=== PATIENT | male | born 1985 | race Two or more races ===

== ENCOUNTER 2021-05-27 18:51 | Inpatient (IN) | payer MEDICAID, OTHER ==
[~2021-05-27] VITALS: Ht 177.8 cm; Wt 113.0 kg
[2021-05-27 19:26] LABS: Hemoglobin 13.1 g/dL (13.5-17.5); Mean Corpuscular Hgb Conc. 30.4 g/dL (32.0-36.0); Mean Corpuscular Volume 92.1 fL (80.0-100.0); Red Blood Cells 4.67 10^6/uL (4.5-5.90)
[2021-05-27] MEDS ORDERED: InsuLIN REG 1unit/0.01ml Soln (100units/ml) IV ONE (19:30)
[2021-05-27 19:34] LABS: White Blood Cell 38.9 10^3/uL (4.4-10.8)
[2021-05-27 19:35] LABS: Basophils % (manual) 0 (0.0-2.0); Blast Cells 0; Eosinophils % (manual) 0 (0-7); Myelocytes % 0; Promyelocytes % 0; Reactive Lymphocytes 0
[2021-05-27 19:38] LABS: INR 1.1 (0.9-1.15)
[2021-05-27 19:40] LABS: Albumin 1.7 g/dL (3.4-5.0); Anion Gap 30 (5-15); Blood Urea Nitrogen 32 mg/dL (7-18); Calcium 8.8 mg/dL (8.5-10.1); Chloride 85 mmol/L (98-107); Magnesium 3.5 mg/dL (1.6-2.6); Sodium 121 mmol/L (136-145)
[2021-05-27 19:48] LABS: Carbon Dioxide 6 mmol/L (21-32); Potassium 6.3 mmol/L (3.5-5.1)
[2021-05-27 19:49] LABS: Alanine Aminotransferase 24 U/L (16-61); Alkaline Phosphatase 257 U/L (45-117); Aspartate Aminotransferase 15 U/L (15-37); BUN/Creatinine Ratio 18.4; Bilirubin, Total 0.6 mg/dL (0.2-1.0); GFR African American 58 mL/min; GFR Non-African American 48 mL/min; Phosphorus 7.8 mg/dL (2.5-4.90)
[2021-05-27 19:52] LABS: Glucose 880 mg/dL (74-106)
[2021-05-27] MEDS ORDERED: MAGNESIUM SULFATE 1GM/100ML 200 ML IV ONE (20:00)
[2021-05-27] MEDS ORDERED: PIPERACILLIN-TAZOB 3.375GM 100 ML IV ONE (20:00)
[2021-05-27] MEDS: InsuLIN R (HUMAN) 100 UNITS in SODIUM CHL 0.9% 99 ML IV SCH ×2 (20:00→22:30)
[2021-05-27] MEDS ORDERED: SODIUM CHLORIDE 0.9% 1,000 ML IV ONE (20:00)
[2021-05-27] MEDS ORDERED: VANCOMYCIN 1GM/250ML 250 ML IV ONE (20:00)
[2021-05-27] MEDS ORDERED: DEXTROSE (50%) 50ML SYRG IV PRN (20:00)
[2021-05-27] MEDS: SODIUM CHLORIDE 0.9% 1,000 ML IV SCH ×2 (20:00→22:00)
[2021-05-27] MEDS ORDERED: INSULIN LANTUS (GLARGINE) 1 /0.01ml (100units/ml) SC ONE (20:00)
[2021-05-27] MEDS: PROPOFOL 100 ML IV SCH (20:30)
[2021-05-27] MEDS ORDERED: ETOMIDATE (2MG/ML) 20ML VIAL IV ONE (20:30)
[2021-05-27] MEDS ORDERED: ROCURONIUM 10MG/ML 10ML VIAL IV ONE (20:30)
[2021-05-27] MEDS ORDERED: PROPOFOL 100 ML IV ONE (20:33)
[2021-05-27] MEDS ORDERED: NOREPINEPHRINE 8 MG/250ML KIT 250 ML IV SCH (20:45)
[2021-05-27] MEDS ORDERED: ONDANSETRON HCL 4 MG/2 ML VIAL IV PRN (21:00)
[2021-05-27] MEDS ORDERED: LORazepam 0.5 MG TAB PO PRN (21:00)
[2021-05-27] MEDS: ACCU-CHEK COMFORT CURVE STRIP VI SCH ×2 (21:00→22:30)
[2021-05-27] MEDS ORDERED: ALUM & MAG HYDROX-SIMETH LIQ(MAALOX) 30 ML PO PRN (21:00)
[2021-05-27] MEDS ORDERED: VANCOMYCIN PER PHARMACY 0 MG IV SCH (21:00)
[2021-05-27] MEDS ORDERED: SODIUM CHLORIDE 0.9% 1,000 ML IV SCH (21:00)
[2021-05-27] MEDS ORDERED: DOCUSATE SOD 100 MG CAP PO PRN (21:00)
[2021-05-27 21:02] LABS: Band Neutrophils % (manual) 7; Lymphocytes % (manual) 4 (10.0-50.0); Metamyelocytes % 1; Monocytes % (manual) 3 (0-12)
[2021-05-27 21:59] VITALS: BP 92/47
[2021-05-27] MEDS ORDERED: SODIUM BICARBONATE 8.4% INJ 50ML SYRINGE IV ONE (22:15)
[2021-05-27] MEDS ORDERED: SODIUM BICARBONATE 50ML VIAL 50 ML in SOD CHL 0.45% 1,000 ML IV SCH (22:15)
[2021-05-27 22:23] LABS: Urine Bacteria NONE SEEN /hpf (None Seen); Urine Blood 1+ /uL (Negative); Urine Specific Gravity 1.024 (1.001-1.035); Urine WBC 2 /hpf (0 - 3)
[2021-05-27 22:33] LABS: Alcohol, Urine < 3.0 mg/dL (0-10); Amphetamine Screen, Urine NEGATIVE (NEGATIVE); Barbiturate Scree,Urine NEGATIVE (NEGATIVE); Benzodiazephine Screen, Urine NEGATIVE (NEGATIVE); Cannabinoid Screen, Urine NEGATIVE (NEGATIVE); Cocaine Screen, Urine NEGATIVE (NEGATIVE); Opiate Scree,Urine NEGATIVE (NEGATIVE); Phencyclidine Screen, Urine NEGATIVE (NEGATIVE)
[2021-05-27 22:39] VITALS: BP 92/47
[2021-05-27] MEDS ORDERED: SODIUM BICARBONATE 8.4% INJ 50ML SYRINGE ONE (22:52)
[2021-05-28] VITALS (75 sets, daily range): BP systolic 85–113; BP diastolic 38–71
[2021-05-28] MEDS: InsuLIN R (HUMAN) 100 UNITS in SODIUM CHL 0.9% 99 ML IV SCH ×7 (00:13→12:25)
[2021-05-28] MEDS: ACCU-CHEK COMFORT CURVE STRIP VI SCH ×16 (01:30→22:50)
[2021-05-28] MEDS ORDERED: InsuLIN R (HUMAN) 100 UNITS in SODIUM CHL 0.9% 99 ML IV SCH ×5 (01:45→05:00)
[2021-05-28] MEDS: PIPERACILLIN-TAZOB 3.375GM 100 ML IV SCH ×3 (02:00→15:08)
[2021-05-28] MEDS ORDERED: SODIUM CHLORIDE 0.9% 1,000 ML IV SCH ×2 (02:00)
[2021-05-28 02:08] LABS: Calcium 7.9 mg/dL (8.5-10.1); Potassium 4.1 mmol/L (3.5-5.1)
[2021-05-28 02:37] LABS: BUN/Creatinine Ratio 18.6
[2021-05-28 05:26] LABS: Hematocrit 34.8 % (41.0-53.0); Hemoglobin 11.4 g/dL (13.5-17.5); Mean Corpuscular Volume 85.3 fL (80.0-100.0); Red Blood Cells 4.08 10^6/uL (4.5-5.90); Red Cell Distribution Width 13.2 % (11.8-14.3)
[2021-05-28 05:30] LABS: Mean Corpuscular Hemoglobin 27.9 pg (28.0-32.0); Mean Corpuscular Hgb Conc. 32.7 g/dL (32.0-36.0)
[2021-05-28] MEDS ORDERED: MIDAZOLAM DRIP 50 mg/50mL 50 ML IV ONE (05:40)
[2021-05-28 05:41] LABS: White Blood Cell 31.5 10^3/uL (4.4-10.8)
[2021-05-28 05:42] LABS: Basophils % (manual) 0 (0.0-2.0); Blast Cells 0; Eosinophils % (manual) 0 (0-7); Metamyelocytes % 0; Promyelocytes % 0; Reactive Lymphocytes 0
[2021-05-28] MEDS: MIDAZOLAM DRIP 50 mg/50mL 50 ML IV SCH ×4 (05:45→20:49)
[2021-05-28 05:54] LABS: BUN/Creatinine Ratio 18.3; Calcium 7.9 mg/dL (8.5-10.1); Magnesium 3.2 mg/dL (1.6-2.6); Phosphorus 4.2 mg/dL (2.5-4.90)
[2021-05-28] MEDS: PROPOFOL 100 ML IV SCH ×4 (06:45→23:27)
[2021-05-28 06:53] LABS: Band Neutrophils % (manual) 32; Lymphocytes % (manual) 2 (10.0-50.0); Monocytes % (manual) 6 (0-12); Myelocytes % 4
[2021-05-28] MEDS ORDERED: VANCOMYCIN 1GM/250ML 250 ML IV SCH ×2 (10:00→22:00)
[2021-05-28] MEDS ORDERED: INSULIN LANTUS (GLARGINE) 1 /0.01ml (100units/ml) SC SCH (10:00)
[2021-05-28] MEDS: SODIUM CHLORIDE 0.9% 1,000 ML IV SCH ×2 (13:33→20:50)
[2021-05-28 14:11] LABS: Potassium 3.2 mmol/L (3.5-5.1)
[2021-05-28 14:15] LABS: BUN/Creatinine Ratio 14.3
[2021-05-28] MEDS: NOREPINEPHRINE 8 MG/250ML KIT 250 ML IV SCH ×2 (17:20→20:45)
[2021-05-28] MEDS: POTASSIUM CHL 20MEQ/100ML 100 ML IV SCH ×2 (17:30→19:16)
[2021-05-28] MEDS: fentaNYL Drip 2500mCg/250mlNS 250 ML IV SCH (18:13)
[2021-05-28] MEDS ORDERED: ALBUAER3 IN (19:40)
[2021-05-28] MEDS: MEROPENEM 1GM IVPB 100 ML IV SCH (20:48)
[2021-05-28] MEDS: SOD CHL 0.9%/ KCL 20MEQ 1,000 ML IV SCH (23:33)
[2021-05-28] MEDS: ATORVASTATIN 20 MG TAB PO SCH (23:34)
[2021-05-28] MEDS: LINEZOLID 600MG/300ML 300 ML IV SCH (23:53)
[2021-05-29] VITALS (104 sets, daily range): BP systolic 99–124; BP diastolic 46–63
[2021-05-29] MEDS: ACCU-CHEK COMFORT CURVE STRIP VI SCH ×7 (00:13→20:06)
[2021-05-29 00:49] LABS: BUN/Creatinine Ratio 13.3; Calcium 7.6 mg/dL (8.5-10.1); Magnesium 2.8 mg/dL (1.6-2.6); Potassium 3.9 mmol/L (3.5-5.1)
[2021-05-29 00:53] LABS: Bilirubin, Total 0.2 mg/dL (0.2-1.0); Total Protein 6.8 g/dL (6.4-8.2)
[2021-05-29] MEDS: MIDAZOLAM DRIP 50 mg/50mL 50 ML IV SCH ×5 (01:19→18:18)
[2021-05-29 01:50] LABS: Albumin 0.7 g/dL (3.4-5.0)
[2021-05-29] MEDS: PROPOFOL 100 ML IV SCH ×7 (02:50→21:34)
[2021-05-29] MEDS ORDERED: ALBUMIN 25% 100 ML IV ONE (03:15)
[2021-05-29] MEDS ORDERED: DEXTROSE (50%) 50ML SYRG IV PRN (03:15)
[2021-05-29] MEDS: InsuLIN REG 1unit/0.01ml Soln (100units/ml) SC SCH ×5 (04:30→20:25)
[2021-05-29 05:27] LABS: Mean Corpuscular Hemoglobin 27.7 pg (28.0-32.0); Mean Corpuscular Volume 82.9 fL (80.0-100.0)
[2021-05-29 05:31] LABS: Hemoglobin 10.7 g/dL (13.5-17.5); Mean Corpuscular Hgb Conc. 33.4 g/dL (32.0-36.0); Red Blood Cells 3.86 10^6/uL (4.5-5.90); Red Cell Distribution Width 13.3 % (11.8-14.3)
[2021-05-29 05:40] LABS: Basophils % (manual) 0 (0.0-2.0); Blast Cells 0; Eosinophils % (manual) 0 (0-7); Metamyelocytes % 0; Myelocytes % 0; Promyelocytes % 0; Reactive Lymphocytes 0
[2021-05-29 05:47] LABS: Albumin 1.5 g/dL (3.4-5.0); Blood Urea Nitrogen 53 mg/dL (7-18); Chloride 103 mmol/L (98-107); Magnesium 3.2 mg/dL (1.6-2.6); Potassium 4.1 mmol/L (3.5-5.1); Sodium 132 mmol/L (136-145)
[2021-05-29 05:51] LABS: INR 0.97 (0.9-1.15); Partial Thromboplastin Time 31.1 sec (23.6-33.0)
[2021-05-29 05:53] LABS: Alanine Aminotransferase 13 U/L (16-61); Alkaline Phosphatase 130 U/L (45-117); Anion Gap 11 (5-15); Aspartate Aminotransferase 15 U/L (15-37); BUN/Creatinine Ratio 12.7; Bilirubin, Total 0.3 mg/dL (0.2-1.0); Carbon Dioxide 18 mmol/L (21-32); GFR African American 21 mL/min; GFR Non-African American 17 mL/min; Glucose 286 mg/dL (74-106); Phosphorus 3.2 mg/dL (2.5-4.90); Total Protein 7.1 g/dL (6.4-8.2); Uric Acid 11.9 mg/dL (3.5-7.2)
[2021-05-29 06:46] LABS: Band Neutrophils % (manual) 33; Lymphocytes % (manual) 6 (10.0-50.0); Monocytes % (manual) 7 (0-12)
[2021-05-29] MEDS: SOD CHL 0.9%/ KCL 20MEQ 1,000 ML IV SCH ×2 (06:54→14:53)
[2021-05-29] MEDS ORDERED: SODIUM BICARBONATE 8.4 % INJ 50ML VIAL IV ONE (07:30)
[2021-05-29] MEDS: MEROPENEM 1GM IVPB 100 ML IV SCH ×2 (07:50→20:05)
[2021-05-29] MEDS: fentaNYL Drip 2500mCg/250mlNS 250 ML IV SCH ×2 (07:55→21:45)
[2021-05-29] MEDS: LINEZOLID 600MG/300ML 300 ML IV SCH (11:22)
[2021-05-29] MEDS: ENOXAPARIN SOD 30 MG/0.3 ML SYRINGE SC SCH (11:23)
[2021-05-29] MEDS: ASPirin 81 mg TAB PO SCH (11:23)
[2021-05-29] MEDS: INSULIN LANTUS (GLARGINE) 1 /0.01ml (100units/ml) SC SCH (11:50)
[2021-05-29] MEDS ORDERED: BUMETANIDE 2.5mg/10ml (0.25 mg/ml) INJ IV ONE (20:00)
[2021-05-29] MEDS: NOREPINEPHRINE 8 MG/250ML KIT 250 ML IV SCH (20:45)
[2021-05-29] MEDS: ATORVASTATIN 20 MG TAB PO SCH (21:34)
[2021-05-30] VITALS (101 sets, daily range): BP systolic 76–145; BP diastolic 31–73
[2021-05-30] MEDS: SOD CHL 0.9%/ KCL 20MEQ 1,000 ML IV SCH ×2 (00:12→06:50)
[2021-05-30] MEDS: PROPOFOL 100 ML IV SCH ×6 (00:13→23:37)
[2021-05-30] MEDS: ACCU-CHEK COMFORT CURVE STRIP VI SCH ×6 (00:13→21:55)
[2021-05-30] MEDS: MIDAZOLAM DRIP 50 mg/50mL 50 ML IV SCH ×4 (00:13→23:37)
[2021-05-30] MEDS: LINEZOLID 600MG/300ML 300 ML IV SCH ×3 (00:15→23:36)
[2021-05-30] MEDS: InsuLIN REG 1unit/0.01ml Soln (100units/ml) SC SCH ×6 (00:26→21:57)
[2021-05-30 04:59] LABS: Basophils # (auto) 0.2 10 ^3/uL (0-0.2); Eosinophils # (auto) 0.4 10 ^3/uL (0-0.8); Eosinophils % (auto) 2.5 % (0.0-7.0); Hematocrit 31.4 % (41.0-53.0); Hemoglobin 10.5 g/dL (13.5-17.5); Lymphocytes # (auto) 1.5 10 ^3/uL (0.4-5.4); Lymphocytes % (auto) 8.7 % (10.0-50.0); Mean Corpuscular Hemoglobin 28.1 pg (28.0-32.0); Mean Corpuscular Hgb Conc. 33.5 g/dL (32.0-36.0); Mean Corpuscular Volume 83.7 fL (80.0-100.0); Monocytes # (auto) 0.8 10 ^3/uL (0-1.3); Monocytes % (auto) 4.4 % (0.0-12.0); Neutrophils # (auto) 14.6 10 ^3/uL (1.6-8.6); Neutrophils % (auto) 83.4 % (37.0-80.0); Red Blood Cells 3.75 10^6/uL (4.5-5.90); Red Cell Distribution Width 13.6 % (11.8-14.3); White Blood Cell 17.5 10^3/uL (4.4-10.8)
[2021-05-30 05:20] LABS: BUN/Creatinine Ratio 11.2; Calcium 7.5 mg/dL (8.5-10.1)
[2021-05-30 07:35] LABS: Phosphorus 5.3 mg/dL (2.5-4.90)
[2021-05-30] MEDS: MEROPENEM 1GM IVPB 100 ML IV SCH (08:19)
[2021-05-30] MEDS ORDERED: SODIUM BICARBONATE 8.4 % INJ 50ML VIAL IV ONE ×2 (09:00→13:30)
[2021-05-30] MEDS ORDERED: ceFAZolin 1GM VL ONE (09:01)
[2021-05-30] MEDS ORDERED: ceFAZolin 1GM/50ML 50 ML IV ONE (09:08)
[2021-05-30] MEDS: fentaNYL Drip 2500mCg/250mlNS 250 ML IV SCH ×2 (09:18→22:00)
[2021-05-30] MEDS: ASPirin 81 mg TAB PO SCH (10:00)
[2021-05-30] MEDS: ENOXAPARIN SOD 30 MG/0.3 ML SYRINGE SC SCH (10:30)
[2021-05-30] MEDS: NOREPINEPHRINE 8 MG/250ML KIT 250 ML IV SCH (10:38)
[2021-05-30] MEDS ORDERED: HYDROmorphone HCL 2 MG/ML VL IV PRN (10:45)
[2021-05-30] MEDS ORDERED: LABETALOL HCL 5 MG/ML 4ML SYRINGE IV PRN (10:45)
[2021-05-30] MEDS: INSULIN LANTUS (GLARGINE) 1 /0.01ml (100units/ml) SC SCH (12:21)
[2021-05-30 12:54] LABS: Albumin 1.1 g/dL (3.4-5.0); Calcium 7.4 mg/dL (8.5-10.1)
[2021-05-30 12:59] LABS: BUN/Creatinine Ratio 10.4; Bilirubin, Total 0.5 mg/dL (0.2-1.0); Total Protein 6.6 g/dL (6.4-8.2)
[2021-05-30 13:03] LABS: Potassium 5.7 mmol/L (3.5-5.1)
[2021-05-30] MEDS ORDERED: ALBUTEROL SULF 2.5 MG/0.5ML(0.5%) NEB SOLN NEB ONE ×3 (13:15→20:45)
[2021-05-30] MEDS ORDERED: FUROSEMIDE 20 MG/2 ML VIAL IV ONE (13:15)
[2021-05-30] MEDS ORDERED: DEXTROSE (50%) 50ML SYRG IV ONE ×2 (13:30→20:45)
[2021-05-30] MEDS ORDERED: InsuLIN REG 1unit/0.01ml Soln (100units/ml) IV ONE ×2 (13:30→20:45)
[2021-05-30] MEDS ORDERED: SODIUM CHLORIDE 0.9% 1,000 ML IV ONE (13:30)
[2021-05-30] MEDS ORDERED: SODIUM ZIRCONIUM CYCL 10 GM PAK PO ONE ×2 (13:30→20:45)
[2021-05-30] MEDS ORDERED: CALCIUM GLUC 1,000mg/50ml-NS 50 ML IV ONE ×2 (13:30→20:45)
[2021-05-30] MEDS ORDERED: SODIUM BICARBONATE 8.4% INJ 50ML SYRINGE ONE (14:36)
[2021-05-30 19:07] LABS: BUN/Creatinine Ratio 10.3; Calcium 7.2 mg/dL (8.5-10.1)
[2021-05-30 19:16] LABS: Potassium 5.9 mmol/L (3.5-5.1)
[2021-05-30] MEDS ORDERED: BUMETANIDE INJECTION 25 MG in GIVE UN-DILUTED 0 ML IV SCH (20:45)
[2021-05-30] MEDS ORDERED: BUMETANIDE 2.5mg/10ml (0.25 mg/ml) INJ IV ONE (20:45)
[2021-05-30] MEDS: ATORVASTATIN 20 MG TAB PO SCH (21:56)
[2021-05-30] MEDS ORDERED: BUMETANIDE ONE (22:36)
[2021-05-30] MEDS ORDERED: BUMETANIDE INJECTION 40 ML ONE (22:40)
[2021-05-31] VITALS (99 sets, daily range): BP systolic 86–123; BP diastolic 36–63
[2021-05-31] MEDS: ACCU-CHEK COMFORT CURVE STRIP VI SCH ×6 (00:18→21:31)
[2021-05-31] MEDS: SODIUM ZIRCONIUM CYCL 10 GM PAK GT SCH ×4 (00:18→19:28)
[2021-05-31] MEDS: InsuLIN REG 1unit/0.01ml Soln (100units/ml) SC SCH ×6 (00:19→21:32)
[2021-05-31 00:52] LABS: BUN/Creatinine Ratio 10.2; Calcium 7.5 mg/dL (8.5-10.1); Potassium 4.9 mmol/L (3.5-5.1)
[2021-05-31] MEDS: PROPOFOL 100 ML IV SCH ×7 (02:00→23:30)
[2021-05-31 05:00] LABS: Basophils # (auto) 0.1 10 ^3/uL (0-0.2); Basophils % (auto) 0.3 % (0.0-2.0); Eosinophils # (auto) 0.2 10 ^3/uL (0-0.8); Eosinophils % (auto) 1.1 % (0.0-7.0); Hematocrit 28.6 % (41.0-53.0); Hemoglobin 9.8 g/dL (13.5-17.5); Lymphocytes # (auto) 1.5 10 ^3/uL (0.4-5.4); Lymphocytes % (auto) 7.2 % (10.0-50.0); Mean Corpuscular Hemoglobin 28.5 pg (28.0-32.0); Mean Corpuscular Hgb Conc. 34.3 g/dL (32.0-36.0); Mean Corpuscular Volume 83.3 fL (80.0-100.0); Monocytes # (auto) 1.5 10 ^3/uL (0-1.3); Neutrophils # (auto) 17.5 10 ^3/uL (1.6-8.6); Neutrophils % (auto) 84.4 % (37.0-80.0); Red Blood Cells 3.43 10^6/uL (4.5-5.90); Red Cell Distribution Width 13.9 % (11.8-14.3); White Blood Cell 20.8 10^3/uL (4.4-10.8)
[2021-05-31] MEDS: NOREPINEPHRINE 8 MG/250ML KIT 250 ML IV SCH (05:02)
[2021-05-31 05:18] LABS: Calcium 7.4 mg/dL (8.5-10.1); Phosphorus 6.9 mg/dL (2.5-4.90); Potassium 4.9 mmol/L (3.5-5.1)
[2021-05-31] MEDS: MIDAZOLAM DRIP 50 mg/50mL 50 ML IV SCH ×2 (06:23→13:15)
[2021-05-31] MEDS: MEROPENEM 1GM IVPB 100 ML IV SCH (10:07)
[2021-05-31] MEDS: ASPirin 81 mg TAB PO SCH (10:18)
[2021-05-31] MEDS: ENOXAPARIN SOD 30 MG/0.3 ML SYRINGE SC SCH (10:18)
[2021-05-31] MEDS: INSULIN LANTUS (GLARGINE) 1 /0.01ml (100units/ml) SC SCH (10:18)
[2021-05-31] MEDS: fentaNYL Drip 2500mCg/250mlNS 250 ML IV SCH (11:38)
[2021-05-31 12:10] LABS: BUN/Creatinine Ratio 9.5; Calcium 7.4 mg/dL (8.5-10.1); Potassium 5.5 mmol/L (3.5-5.1)
[2021-05-31] MEDS: LINEZOLID 600MG/300ML 300 ML IV SCH ×2 (13:42→23:20)
[2021-05-31] MEDS ORDERED: VANCOMYCIN PER PHARMACY 0 MG IV SCH (14:15)
[2021-05-31 18:46] LABS: Calcium 7.6 mg/dL (8.5-10.1)
[2021-05-31 18:48] LABS: BUN/Creatinine Ratio 9.9
[2021-05-31] MEDS ORDERED: InsuLIN REG 1unit/0.01ml Soln (100units/ml) IV ONE ×2 (19:15→23:59)
[2021-05-31] MEDS ORDERED: CALCIUM GLUC 1,000mg/50ml-NS 50 ML IV ONE ×2 (19:15→23:59)
[2021-05-31] MEDS ORDERED: DEXTROSE (50%) 50ML SYRG IV ONE ×2 (19:15→23:59)
[2021-05-31] MEDS: ATORVASTATIN 20 MG TAB PO SCH (23:20)
[2021-06-01] VITALS (94 sets, daily range): BP systolic 92–148; BP diastolic 37–82
[2021-06-01] MEDS ORDERED: CALCIUM GLUC 1,000mg/50ml-NS 50 ML IV ONE
[2021-06-01 00:32] LABS: BUN/Creatinine Ratio 9.9; Calcium 7.5 mg/dL (8.5-10.1); Potassium 5.5 mmol/L (3.5-5.1)
[2021-06-01] MEDS: fentaNYL Drip 2500mCg/250mlNS 250 ML IV SCH ×3 (02:00→23:47)
[2021-06-01] MEDS: InsuLIN REG 1unit/0.01ml Soln (100units/ml) SC SCH ×7 (03:28→23:59)
[2021-06-01] MEDS: ACCU-CHEK COMFORT CURVE STRIP VI SCH ×7 (03:31→23:59)
[2021-06-01] MEDS: PROPOFOL 100 ML IV SCH ×6 (04:00→22:30)
[2021-06-01 05:28] LABS: Basophils # (auto) 0.1 10 ^3/uL (0-0.2); Basophils % (auto) 0.4 % (0.0-2.0); Eosinophils # (auto) 0.5 10 ^3/uL (0-0.8); Eosinophils % (auto) 2.7 % (0.0-7.0); Hematocrit 27.3 % (41.0-53.0); Lymphocytes # (auto) 0.9 10 ^3/uL (0.4-5.4); Lymphocytes % (auto) 4.8 % (10.0-50.0); Mean Corpuscular Hemoglobin 27.7 pg (28.0-32.0); Mean Corpuscular Hgb Conc. 32.8 g/dL (32.0-36.0); Mean Corpuscular Volume 84.3 fL (80.0-100.0); Monocytes # (auto) 1.7 10 ^3/uL (0-1.3); Monocytes % (auto) 9.2 % (0.0-12.0); Neutrophils # (auto) 15.6 10 ^3/uL (1.6-8.6); Neutrophils % (auto) 82.9 % (37.0-80.0); Red Blood Cells 3.24 10^6/uL (4.5-5.90); Red Cell Distribution Width 14.1 % (11.8-14.3); White Blood Cell 18.8 10^3/uL (4.4-10.8)
[2021-06-01 06:00] LABS: Potassium 5.4 mmol/L (3.5-5.1)
[2021-06-01] MEDS: SODIUM ZIRCONIUM CYCL 10 GM PAK GT SCH ×4 (06:08→22:00)
[2021-06-01 06:10] LABS: BUN/Creatinine Ratio 9.8; Bilirubin, Total 0.5 mg/dL (0.2-1.0); Calcium 7.7 mg/dL (8.5-10.1); Total Protein 6.2 g/dL (6.4-8.2)
[2021-06-01 06:38] LABS: Albumin 0.9 g/dL (3.4-5.0)
[2021-06-01] MEDS ORDERED: SODIUM BICARBONATE 8.4 % INJ 50ML VIAL IV ONE (07:15)
[2021-06-01] MEDS ORDERED: SODIUM CHL 0.9% 1000 ML BAG XX ONE (09:15)
[2021-06-01] MEDS: MEROPENEM 1GM IVPB 100 ML IV SCH (09:48)
[2021-06-01] MEDS: ASPirin 81 mg TAB PO SCH (09:48)
[2021-06-01] MEDS: MIDAZOLAM DRIP 50 mg/50mL 50 ML IV SCH ×2 (09:50→18:52)
[2021-06-01] MEDS: INSULIN LANTUS (GLARGINE) 1 /0.01ml (100units/ml) SC SCH (11:39)
[2021-06-01] MEDS: ENOXAPARIN SOD 30 MG/0.3 ML SYRINGE SC SCH (12:01)
[2021-06-01] MEDS: LINEZOLID 600MG/300ML 300 ML IV SCH ×2 (12:01→23:00)
[2021-06-01 12:25] LABS: BUN/Creatinine Ratio 9.8; Calcium 7.8 mg/dL (8.5-10.1)
[2021-06-01 13:09] LABS: Potassium 5.8 mmol/L (3.5-5.1)
[2021-06-01] MEDS ORDERED: ALBUMIN 25% 50 ML IV ONE (14:28)
[2021-06-01] MEDS ORDERED: ALBUMIN 25% 100 ML IV ONE (14:30)
[2021-06-01] MEDS ORDERED: SODIUM ZIRCONIUM CYCL 10 GM PAK GT SCH (18:00)
[2021-06-01 20:01] LABS: BUN/Creatinine Ratio 8.6; Calcium 7.5 mg/dL (8.5-10.1); Potassium 3.9 mmol/L (3.5-5.1)
[2021-06-01] MEDS: NOREPINEPHRINE 8 MG/250ML KIT 250 ML IV SCH (20:45)
[2021-06-01] MEDS ORDERED: EPOETIN ALFA-EPBX 10,000 UNIT/1ML VIAL SC ONE ×2 (21:00)
[2021-06-01] MEDS: ATORVASTATIN 20 MG TAB PO SCH (22:00)
[2021-06-02] VITALS (104 sets, daily range): BP systolic 89–136; BP diastolic 42–69
[2021-06-02] MEDS: PROPOFOL 100 ML IV SCH ×3 (01:39→09:49)
[2021-06-02] MEDS: InsuLIN REG 1unit/0.01ml Soln (100units/ml) SC SCH ×5 (04:00→20:00)
[2021-06-02] MEDS: ACCU-CHEK COMFORT CURVE STRIP VI SCH ×5 (04:29→20:00)
[2021-06-02] MEDS: MIDAZOLAM DRIP 50 mg/50mL 50 ML IV SCH (04:30)
[2021-06-02 04:38] LABS: Hematocrit 25.7 % (41.0-53.0); Hemoglobin 8.8 g/dL (13.5-17.5); Mean Corpuscular Hemoglobin 27.9 pg (28.0-32.0); Mean Corpuscular Hgb Conc. 34.4 g/dL (32.0-36.0); Mean Corpuscular Volume 81.2 fL (80.0-100.0); Red Blood Cells 3.17 10^6/uL (4.5-5.90); Red Cell Distribution Width 13.6 % (11.8-14.3); White Blood Cell 16.1 10^3/uL (4.4-10.8)
[2021-06-02 04:58] LABS: % Iron Saturation 12.7 % (20-55); BUN/Creatinine Ratio 8.9; Calcium 7.2 mg/dL (8.5-10.1); Potassium 3.9 mmol/L (3.5-5.1)
[2021-06-02] MEDS ORDERED: CALCIUM GLUC 1,000mg/50ml-NS 50 ML IV ONE (06:00)
[2021-06-02] MEDS: SODIUM ZIRCONIUM CYCL 10 GM PAK GT SCH ×3 (06:00→21:51)
[2021-06-02 06:35] LABS: Basophils % (manual) 0 (0.0-2.0); Blast Cells 0; Myelocytes % 0; Promyelocytes % 0; Reactive Lymphocytes 0
[2021-06-02 08:35] LABS: Band Neutrophils % (manual) 4; Eosinophils % (manual) 3 (0-7); Lymphocytes % (manual) 14 (10.0-50.0); Metamyelocytes % 1; Monocytes % (manual) 7 (0-12)
[2021-06-02] MEDS: MEROPENEM 1GM IVPB 100 ML IV SCH (09:47)
[2021-06-02] MEDS: ENOXAPARIN SOD 30 MG/0.3 ML SYRINGE SC SCH (09:47)
[2021-06-02] MEDS: ASPirin 81 mg TAB PO SCH (09:48)
[2021-06-02] MEDS: INSULIN LANTUS (GLARGINE) 1 /0.01ml (100units/ml) SC SCH (10:00)
[2021-06-02] MEDS ORDERED: BUMETANIDE 2.5mg/10ml (0.25 mg/ml) INJ IV ONE (10:30)
[2021-06-02] MEDS: LINEZOLID 600MG/300ML 300 ML IV SCH ×2 (13:10→22:54)
[2021-06-02] MEDS: NOREPINEPHRINE 8 MG/250ML KIT 250 ML IV SCH (20:45)
[2021-06-02] MEDS: ATORVASTATIN 20 MG TAB PO SCH (21:52)
[2021-06-03] VITALS (106 sets, daily range): BP systolic 106–140; BP diastolic 58–79
[2021-06-03] MEDS: InsuLIN REG 1unit/0.01ml Soln (100units/ml) SC SCH ×7 (04:00→23:34)
[2021-06-03] MEDS: ACCU-CHEK COMFORT CURVE STRIP VI SCH ×7 (04:00→23:34)
[2021-06-03 04:48] LABS: Hematocrit 26.6 % (41.0-53.0); Mean Corpuscular Hemoglobin 27.2 pg (28.0-32.0); Mean Corpuscular Hgb Conc. 33.9 g/dL (32.0-36.0); Mean Corpuscular Volume 80.3 fL (80.0-100.0); Red Blood Cells 3.31 10^6/uL (4.5-5.90); Red Cell Distribution Width 14.1 % (11.8-14.3); White Blood Cell 20.3 10^3/uL (4.4-10.8)
[2021-06-03 05:01] LABS: Basophils % (manual) 0 (0.0-2.0); Blast Cells 0; Myelocytes % 0; Promyelocytes % 0; Reactive Lymphocytes 0
[2021-06-03 05:08] LABS: Potassium 4.2 mmol/L (3.5-5.1)
[2021-06-03 05:24] LABS: BUN/Creatinine Ratio 9.9; Calcium 7.7 mg/dL (8.5-10.1)
[2021-06-03] MEDS: SODIUM ZIRCONIUM CYCL 10 GM PAK GT SCH ×3 (05:53→22:00)
[2021-06-03 06:39] LABS: Band Neutrophils % (manual) 35; Eosinophils % (manual) 4 (0-7); Lymphocytes % (manual) 11 (10.0-50.0); Metamyelocytes % 2; Monocytes % (manual) 7 (0-12)
[2021-06-03] MEDS ORDERED: SODIUM CHL 0.9% 1000 ML BAG XX ONE (07:00)
[2021-06-03] MEDS: MEROPENEM 500MG IVPB 50 ML IV SCH ×2 (08:00→20:16)
[2021-06-03] MEDS: ASPirin 81 mg TAB PO SCH (08:00)
[2021-06-03] MEDS: INSULIN LANTUS (GLARGINE) 1 /0.01ml (100units/ml) SC SCH (08:00)
[2021-06-03] MEDS: ENOXAPARIN SOD 30 MG/0.3 ML SYRINGE SC SCH (08:01)
[2021-06-03] MEDS ORDERED: ALBUMIN 25% 50 ML IV ONE (09:15)
[2021-06-03] MEDS: LINEZOLID 600MG/300ML 300 ML IV SCH ×2 (10:29→22:55)
[2021-06-03] MEDS: fentaNYL Drip 2500mCg/250mlNS 250 ML IV SCH (14:00)
[2021-06-03] MEDS: PROPOFOL 100 ML IV SCH (20:30)
[2021-06-03] MEDS: NOREPINEPHRINE 8 MG/250ML KIT 250 ML IV SCH (20:45)
[2021-06-03] MEDS ORDERED: EPOETIN ALFA-EPBX 10,000 UNIT/1ML VIAL SC ONE (21:00)
[2021-06-03] MEDS: ATORVASTATIN 20 MG TAB PO SCH (22:54)
[2021-06-04] VITALS (100 sets, daily range): BP systolic 108–141; BP diastolic 58–81
[2021-06-04] MEDS: InsuLIN REG 1unit/0.01ml Soln (100units/ml) SC SCH ×6 (04:00→23:52)
[2021-06-04] MEDS: ACCU-CHEK COMFORT CURVE STRIP VI SCH ×6 (04:00→23:52)
[2021-06-04 04:59] LABS: Mean Corpuscular Hgb Conc. 34.1 g/dL (32.0-36.0); Red Cell Distribution Width 13.9 % (11.8-14.3)
[2021-06-04] MEDS: MIDAZOLAM DRIP 50 mg/50mL 50 ML IV SCH (05:00)
[2021-06-04 05:01] LABS: Hematocrit 26.9 % (41.0-53.0); Hemoglobin 9.2 g/dL (13.5-17.5); Mean Corpuscular Hemoglobin 27.5 pg (28.0-32.0); Mean Corpuscular Volume 80.7 fL (80.0-100.0); Red Blood Cells 3.34 10^6/uL (4.5-5.90); White Blood Cell 18.6 10^3/uL (4.4-10.8)
[2021-06-04 05:09] LABS: Basophils % (manual) 0 (0.0-2.0); Blast Cells 0; Metamyelocytes % 0; Myelocytes % 0; Promyelocytes % 0; Reactive Lymphocytes 0
[2021-06-04 05:15] LABS: Potassium 3.6 mmol/L (3.5-5.1)
[2021-06-04 05:21] LABS: BUN/Creatinine Ratio 8.6; Calcium 8.3 mg/dL (8.5-10.1)
[2021-06-04] MEDS: SODIUM ZIRCONIUM CYCL 10 GM PAK GT SCH (06:00)
[2021-06-04] MEDS ORDERED: BUMETANIDE 2.5mg/10ml (0.25 mg/ml) INJ IV ONE (07:15)
[2021-06-04 07:40] LABS: Band Neutrophils % (manual) 3; Eosinophils % (manual) 3 (0-7); Lymphocytes % (manual) 7 (10.0-50.0); Monocytes % (manual) 4 (0-12)
[2021-06-04] MEDS: INSULIN LANTUS (GLARGINE) 1 /0.01ml (100units/ml) SC SCH (09:08)
[2021-06-04] MEDS: MEROPENEM 500MG IVPB 50 ML IV SCH ×3 (09:13→23:00)
[2021-06-04] MEDS: ASPirin 81 mg TAB PO SCH (09:14)
[2021-06-04] MEDS: ENOXAPARIN SOD 30 MG/0.3 ML SYRINGE SC SCH (09:15)
[2021-06-04] MEDS: LINEZOLID 600MG/300ML 300 ML IV SCH ×2 (12:46→23:00)
[2021-06-04] MEDS: ACETAMINOPHEN 325 MG TAB PO PRN ×2 (13:41→16:27)
[2021-06-04] MEDS: fentaNYL Drip 2500mCg/250mlNS 250 ML IV SCH (17:45)
[2021-06-04] MEDS: PROPOFOL 100 ML IV SCH (20:30)
[2021-06-04] MEDS: NOREPINEPHRINE 8 MG/250ML KIT 250 ML IV SCH (20:45)
[2021-06-04] MEDS: ATORVASTATIN 20 MG TAB PO SCH (22:00)
[2021-06-05] VITALS (50 sets, daily range): BP systolic 129–163; BP diastolic 77–96
[2021-06-05] MEDS: ACCU-CHEK COMFORT CURVE STRIP VI SCH ×5 (04:00→20:00)
[2021-06-05] MEDS: MIDAZOLAM DRIP 50 mg/50mL 50 ML IV SCH (05:00)
[2021-06-05 06:14] LABS: Basophils # (auto) 0 10 ^3/uL (0-0.2); Hemoglobin 9.9 g/dL (13.5-17.5); Lymphocytes # (auto) 1.4 10 ^3/uL (0.4-5.4); Lymphocytes % (auto) 6.2 % (10.0-50.0); Monocytes # (auto) 1.7 10 ^3/uL (0-1.3)
[2021-06-05 06:17] LABS: Basophils % (auto) 0.1 % (0.0-2.0); Eosinophils # (auto) 0.8 10 ^3/uL (0-0.8); Eosinophils % (auto) 3.4 % (0.0-7.0); Hematocrit 29.2 % (41.0-53.0); Mean Corpuscular Hemoglobin 27.2 pg (28.0-32.0); Mean Corpuscular Hgb Conc. 33.8 g/dL (32.0-36.0); Mean Corpuscular Volume 80.3 fL (80.0-100.0); Monocytes % (auto) 7.6 % (0.0-12.0); Neutrophils # (auto) 18.7 10 ^3/uL (1.6-8.6); Neutrophils % (auto) 82.7 % (37.0-80.0); Red Blood Cells 3.64 10^6/uL (4.5-5.90); Red Cell Distribution Width 13.8 % (11.8-14.3); White Blood Cell 22.6 10^3/uL (4.4-10.8)
[2021-06-05 06:37] LABS: Potassium 3.2 mmol/L (3.5-5.1)
[2021-06-05 06:44] LABS: BUN/Creatinine Ratio 8.9; Calcium 8.2 mg/dL (8.5-10.1)
[2021-06-05] MEDS ORDERED: SODIUM CHL 0.9% 1000 ML BAG XX ONE (07:00)
[2021-06-05] MEDS: InsuLIN REG 1unit/0.01ml Soln (100units/ml) SC SCH ×5 (08:00→20:00)
[2021-06-05] MEDS: ASPirin 81 mg TAB PO SCH (11:14)
[2021-06-05] MEDS: ENOXAPARIN SOD 30 MG/0.3 ML SYRINGE SC SCH (11:15)
[2021-06-05] MEDS: INSULIN LANTUS (GLARGINE) 1 /0.01ml (100units/ml) SC SCH (11:18)
[2021-06-05] MEDS: LINEZOLID 600MG/300ML 300 ML IV SCH ×2 (14:38→23:00)
[2021-06-05] MEDS: MEROPENEM 500MG IVPB 50 ML IV SCH ×2 (14:42→23:18)
[2021-06-05 15:12] LABS: % Iron Saturation 30.8 % (20-55)
[2021-06-05] MEDS: fentaNYL Drip 2500mCg/250mlNS 250 ML IV SCH (17:45)
[2021-06-05] MEDS: PROPOFOL 100 ML IV SCH (20:30)
[2021-06-05] MEDS: NOREPINEPHRINE 8 MG/250ML KIT 250 ML IV SCH (20:45)
[2021-06-05] MEDS ORDERED: EPOETIN ALFA-EPBX 10,000 UNIT/1ML VIAL SC ONE (21:00)
[2021-06-05] MEDS: ATORVASTATIN 20 MG TAB PO SCH (23:52)
[2021-06-06] VITALS (65 sets, daily range): BP systolic 101–150; BP diastolic 50–85
[2021-06-06] MEDS: ACCU-CHEK COMFORT CURVE STRIP VI SCH ×6 (00:17→20:00)
[2021-06-06] MEDS: MEROPENEM 500MG IVPB 50 ML IV SCH ×3 (01:55→14:16)
[2021-06-06] MEDS: InsuLIN REG 1unit/0.01ml Soln (100units/ml) SC SCH ×6 (04:00→20:00)
[2021-06-06] MEDS: MIDAZOLAM DRIP 50 mg/50mL 50 ML IV SCH (05:00)
[2021-06-06 05:33] LABS: Lymphocytes # (auto) 1.4 10 ^3/uL (0.4-5.4); Mean Corpuscular Hgb Conc. 33.4 g/dL (32.0-36.0)
[2021-06-06 05:35] LABS: Basophils # (auto) 0 10 ^3/uL (0-0.2); Basophils % (auto) 0.2 % (0.0-2.0); Eosinophils # (auto) 0.8 10 ^3/uL (0-0.8); Eosinophils % (auto) 3.8 % (0.0-7.0); Hematocrit 33.2 % (41.0-53.0); Hemoglobin 11.1 g/dL (13.5-17.5); Lymphocytes % (auto) 6.4 % (10.0-50.0); Mean Corpuscular Volume 80.8 fL (80.0-100.0); Monocytes # (auto) 1.4 10 ^3/uL (0-1.3); Monocytes % (auto) 6.7 % (0.0-12.0); Neutrophils # (auto) 17.6 10 ^3/uL (1.6-8.6); Neutrophils % (auto) 82.9 % (37.0-80.0); Nucleated Red Blood Cells % 0.1 %; Red Blood Cells 4.11 10^6/uL (4.5-5.90); Red Cell Distribution Width 13.8 % (11.8-14.3); White Blood Cell 21.2 10^3/uL (4.4-10.8)
[2021-06-06] MEDS: ASPirin 81 mg TAB PO SCH (09:45)
[2021-06-06] MEDS: INSULIN LANTUS (GLARGINE) 1 /0.01ml (100units/ml) SC SCH (09:48)
[2021-06-06] MEDS: ENOXAPARIN SOD 30 MG/0.3 ML SYRINGE SC SCH (09:49)
[2021-06-06] MEDS: LINEZOLID 600MG/300ML 300 ML IV SCH ×2 (12:18→22:56)
[2021-06-06 14:13] LABS: Calcium 8.2 mg/dL (8.5-10.1); Potassium 3.6 mmol/L (3.5-5.1)
[2021-06-06 14:16] LABS: BUN/Creatinine Ratio 9.2
[2021-06-06] MEDS ORDERED: Glucerna 1.2 Cal 1Liter BOTTLE GT SCH ×2 (15:45)
[2021-06-06] MEDS ORDERED: IRON SUCROSE COMPLEX 200 MG in SODIUM CHL 0.9% 100 ML IV SCH (15:45)
[2021-06-06] MEDS ORDERED: BUMETANIDE 2.5mg/10ml (0.25 mg/ml) INJ IV ONE (16:00)
[2021-06-06] MEDS: ALBUMIN 25% 100 ML IV SCH (17:01)
[2021-06-06] MEDS: SODIUM FERR GLUC 62.5MG/5ML 125 MG in SODIUM CHL 0.9% 100 ML IV SCH (17:02)
[2021-06-06] MEDS: fentaNYL Drip 2500mCg/250mlNS 250 ML IV SCH (17:45)
[2021-06-06] MEDS: PROPOFOL 100 ML IV SCH (20:30)
[2021-06-06] MEDS: NOREPINEPHRINE 8 MG/250ML KIT 250 ML IV SCH (20:45)
[2021-06-06] MEDS: ATORVASTATIN 20 MG TAB PO SCH (22:55)
[2021-06-07] VITALS (93 sets, daily range): BP systolic 111–157; BP diastolic 63–83
[2021-06-07] MEDS: ACCU-CHEK COMFORT CURVE STRIP VI SCH ×6 (02:10→18:12)
[2021-06-07] MEDS: ALBUMIN 25% 100 ML IV SCH ×2 (03:48→08:00)
[2021-06-07] MEDS: InsuLIN REG 1unit/0.01ml Soln (100units/ml) SC SCH ×6 (04:00→18:00)
[2021-06-07] MEDS: MIDAZOLAM DRIP 50 mg/50mL 50 ML IV SCH (05:00)
[2021-06-07 05:17] LABS: Basophils # (auto) 0 10 ^3/uL (0-0.2); Lymphocytes # (auto) 1.5 10 ^3/uL (0.4-5.4); Lymphocytes % (auto) 8.1 % (10.0-50.0)
[2021-06-07 05:21] LABS: Basophils % (auto) 0.2 % (0.0-2.0); Eosinophils # (auto) 0.9 10 ^3/uL (0-0.8); Eosinophils % (auto) 4.8 % (0.0-7.0); Hematocrit 26.7 % (41.0-53.0); Mean Corpuscular Hgb Conc. 33.9 g/dL (32.0-36.0); Mean Corpuscular Volume 79.8 fL (80.0-100.0); Monocytes % (auto) 5.4 % (0.0-12.0); Neutrophils % (auto) 81.5 % (37.0-80.0); Nucleated Red Blood Cells % 0.1 %; Red Blood Cells 3.35 10^6/uL (4.5-5.90); Red Cell Distribution Width 13.9 % (11.8-14.3); White Blood Cell 18.3 10^3/uL (4.4-10.8)
[2021-06-07 05:32] LABS: Calcium 8.1 mg/dL (8.5-10.1); Potassium 3.1 mmol/L (3.5-5.1)
[2021-06-07 05:36] LABS: BUN/Creatinine Ratio 9.8
[2021-06-07] MEDS ORDERED: CLINIMIX PER PHARMACY 0 ML IV SCH (10:00)
[2021-06-07] MEDS ORDERED: POTASSIUM CHL 20MEQ/50ML 50 ML IV SCH (10:00)
[2021-06-07] MEDS: INSULIN LANTUS (GLARGINE) 1 /0.01ml (100units/ml) SC SCH (10:00)
[2021-06-07] MEDS ORDERED: ARTIFICIAL TEARS 15ml EACHEYE PRN (10:00)
[2021-06-07] MEDS: ENOXAPARIN SOD 30 MG/0.3 ML SYRINGE SC SCH (10:00)
[2021-06-07] MEDS: ASPirin 81 mg TAB PO SCH (10:00)
[2021-06-07] MEDS: LINEZOLID 600MG/300ML 300 ML IV SCH (10:34)
[2021-06-07 10:57] LABS: Albumin 1.9 g/dL (3.4-5.0); Calcium 8.2 mg/dL (8.5-10.1); Magnesium 3.3 mg/dL (1.6-2.6); Potassium 3.1 mmol/L (3.5-5.1)
[2021-06-07 11:00] LABS: BUN/Creatinine Ratio 9.8; Bilirubin, Total 0.4 mg/dL (0.2-1.0); Phosphorus 8.4 mg/dL (2.5-4.90); Total Protein 6.3 g/dL (6.4-8.2)
[2021-06-07] MEDS ORDERED: DEXTROSE (50%) 50ML SYRG IV SCH (12:00)
[2021-06-07] MEDS: MEROPENEM 500MG IVPB 50 ML IV SCH (12:00)
[2021-06-07] MEDS: SODIUM FERR GLUC 62.5MG/5ML 125 MG in SODIUM CHL 0.9% 100 ML IV SCH (12:00)
[2021-06-07] MEDS: POTASSIUM CHL 20MEQ/100ML 100 ML IV SCH ×2 (12:04→12:15)
[2021-06-07] MEDS ORDERED: ALBUTEROL SULF 2.5 MG/0.5ML(0.5%) NEB SOLN ONE (13:57)
[2021-06-07] MEDS ORDERED: IPRATROPIUM BROM 0.5 MG/2.5ML INH SOL ONE (13:58)
[2021-06-07] MEDS: fentaNYL Drip 2500mCg/250mlNS 250 ML IV SCH (14:44)
[2021-06-07] MEDS: ALBUTEROL SULF 2.5 MG/0.5ML(0.5%) NEB SOLN NEB SCH (18:19)
[2021-06-07] MEDS: BUDESONIDE (INHALATION) 0.5 MG/2 ML NEB NEB SCH (18:19)
[2021-06-07] MEDS: IPRATROPIUM BROM 0.5 MG/2.5ML INH SOL NEB SCH (18:19)
[2021-06-07] MEDS ORDERED: AMINO ACID INFUSION IN D10W 1,000 ML IV NR (20:00)
[2021-06-07] MEDS: PROPOFOL 100 ML IV SCH (20:30)
[2021-06-07] MEDS: NOREPINEPHRINE 8 MG/250ML KIT 250 ML IV SCH (20:45)
[2021-06-07] MEDS: FLUCONAZOLE 200MG/100ML 100 ML IV SCH ×2 (21:00→21:26)
[2021-06-07] MEDS: ATORVASTATIN 20 MG TAB PO SCH ×2 (21:26→21:51)
[2021-06-08] VITALS (29 sets, daily range): BP systolic 125–159; BP diastolic 65–87
[2021-06-08] MEDS: ALBUTEROL SULF 2.5 MG/0.5ML(0.5%) NEB SOLN NEB SCH ×5 (00:12→23:40)
[2021-06-08] MEDS: IPRATROPIUM BROM 0.5 MG/2.5ML INH SOL NEB SCH ×5 (00:12→23:40)
[2021-06-08] MEDS: MEROPENEM 500MG IVPB 50 ML IV SCH ×2 (00:39→16:02)
[2021-06-08] MEDS: ACCU-CHEK COMFORT CURVE STRIP VI SCH ×4 (00:40→17:50)
[2021-06-08] MEDS ORDERED: FLUCONAZOLE 200MG/100ML 100 ML IV SCH (01:00)
[2021-06-08] MEDS: MIDAZOLAM DRIP 50 mg/50mL 50 ML IV SCH (05:00)
[2021-06-08] MEDS: BUDESONIDE (INHALATION) 0.5 MG/2 ML NEB NEB SCH ×2 (05:59→17:17)
[2021-06-08] MEDS: InsuLIN REG 1unit/0.01ml Soln (100units/ml) SC SCH ×4 (06:00→18:00)
[2021-06-08] MEDS ORDERED: SODIUM CHL 0.9% 1000 ML BAG XX ONE (07:00)
[2021-06-08 07:18] LABS: Basophils # (auto) 0.1 10 ^3/uL (0-0.2); Eosinophils # (auto) 0.7 10 ^3/uL (0-0.8); Red Cell Distribution Width 13.8 % (11.8-14.3)
[2021-06-08 07:20] LABS: Basophils % (auto) 0.3 % (0.0-2.0); Eosinophils % (auto) 3.6 % (0.0-7.0); Hematocrit 22.9 % (41.0-53.0); Hemoglobin 7.6 g/dL (13.5-17.5); Lymphocytes % (auto) 9.6 % (10.0-50.0); Mean Corpuscular Hemoglobin 26.8 pg (28.0-32.0); Mean Corpuscular Hgb Conc. 33.2 g/dL (32.0-36.0); Mean Corpuscular Volume 80.6 fL (80.0-100.0); Monocytes # (auto) 0.8 10 ^3/uL (0-1.3); Neutrophils # (auto) 17.3 10 ^3/uL (1.6-8.6); Neutrophils % (auto) 82.5 % (37.0-80.0); Red Blood Cells 2.84 10^6/uL (4.5-5.90); White Blood Cell 20.9 10^3/uL (4.4-10.8)
[2021-06-08 07:32] LABS: Albumin 1.6 g/dL (3.4-5.0); Calcium 8.2 mg/dL (8.5-10.1); Magnesium 3.3 mg/dL (1.6-2.6); Potassium 3.9 mmol/L (3.5-5.1)
[2021-06-08 07:39] LABS: BUN/Creatinine Ratio 9.7; Bilirubin, Total 0.4 mg/dL (0.2-1.0); Pre Albumin 14.1 mg/dL (20.0-40.0); Total Protein 6.4 g/dL (6.4-8.2)
[2021-06-08 08:12] LABS: Phosphorus 9.2 mg/dL (2.5-4.90)
[2021-06-08] MEDS: ASPirin 81 mg TAB PO SCH (08:47)
[2021-06-08] MEDS: FLUCONAZOLE 200MG/100ML 100 ML IV SCH ×2 (10:00→13:18)
[2021-06-08] MEDS: INSULIN LANTUS (GLARGINE) 1 /0.01ml (100units/ml) SC SCH (10:00)
[2021-06-08] MEDS: SODIUM FERR GLUC 62.5MG/5ML 125 MG in SODIUM CHL 0.9% 100 ML IV SCH ×2 (11:29→15:01)
[2021-06-08] MEDS: ALBUMIN 25% 100 ML IV SCH ×4 (13:00→18:25)
[2021-06-08] MEDS ORDERED: CLINIMIX PER PHARMACY IV NR (20:00)
[2021-06-08] MEDS ORDERED: EPOETIN ALFA-EPBX 10,000 UNIT/1ML VIAL SC ONE (21:00)
[2021-06-08] MEDS: ATORVASTATIN 20 MG TAB PO SCH (21:15)
[2021-06-09] VITALS (8 sets, daily range): BP systolic 104–137; BP diastolic 47–77
[2021-06-09] MEDS: ACCU-CHEK COMFORT CURVE STRIP VI SCH ×5 (00:07→23:42)
[2021-06-09] MEDS: MEROPENEM 500MG IVPB 50 ML IV SCH (00:07)
[2021-06-09] MEDS: InsuLIN REG 1unit/0.01ml Soln (100units/ml) SC SCH ×5 (00:08→23:43)
[2021-06-09 04:53] LABS: Basophils # (auto) 0.1 10 ^3/uL (0-0.2); Lymphocytes # (auto) 1.7 10 ^3/uL (0.4-5.4); Monocytes # (auto) 0.9 10 ^3/uL (0-1.3); Red Blood Cells 2.49 10^6/uL (4.5-5.90)
[2021-06-09 04:54] LABS: Basophils % (auto) 0.4 % (0.0-2.0); Eosinophils # (auto) 0.8 10 ^3/uL (0-0.8); Eosinophils % (auto) 4.5 % (0.0-7.0); Hematocrit 20.3 % (41.0-53.0); Lymphocytes % (auto) 9.5 % (10.0-50.0); Mean Corpuscular Hemoglobin 27.2 pg (28.0-32.0); Mean Corpuscular Hgb Conc. 33.3 g/dL (32.0-36.0); Mean Corpuscular Volume 81.7 fL (80.0-100.0); Monocytes % (auto) 4.7 % (0.0-12.0); Neutrophils # (auto) 14.9 10 ^3/uL (1.6-8.6); Neutrophils % (auto) 80.9 % (37.0-80.0); Red Cell Distribution Width 13.6 % (11.8-14.3); White Blood Cell 18.3 10^3/uL (4.4-10.8)
[2021-06-09 05:08] LABS: Albumin 2.1 g/dL (3.4-5.0); Calcium 8.1 mg/dL (8.5-10.1); Hemoglobin 6.8 g/dL (13.5-17.5); Magnesium 2.8 mg/dL (1.6-2.6); Potassium 3.6 mmol/L (3.5-5.1)
[2021-06-09 05:12] LABS: BUN/Creatinine Ratio 9.5; Bilirubin, Total 0.4 mg/dL (0.2-1.0); Phosphorus 5.9 mg/dL (2.5-4.90); Total Protein 6.8 g/dL (6.4-8.2)
[2021-06-09] MEDS: BUDESONIDE (INHALATION) 0.5 MG/2 ML NEB NEB SCH ×2 (05:56→19:25)
[2021-06-09] MEDS: IPRATROPIUM BROM 0.5 MG/2.5ML INH SOL NEB SCH ×3 (05:56→19:24)
[2021-06-09] MEDS: ALBUTEROL SULF 2.5 MG/0.5ML(0.5%) NEB SOLN NEB SCH ×3 (05:56→19:24)
[2021-06-09] MEDS: MORPHINE SULFATE INJECTION 2 MG/ML SYRG IV PRN ×2 (08:30→18:27)
[2021-06-09] MEDS: ASPirin 81 mg TAB PO SCH (10:00)
[2021-06-09] MEDS: INSULIN LANTUS (GLARGINE) 1 /0.01ml (100units/ml) SC SCH (10:21)
[2021-06-09] MEDS: SODIUM FERR GLUC 62.5MG/5ML 125 MG in SODIUM CHL 0.9% 100 ML IV SCH (13:05)
[2021-06-09] MEDS: CALCIUM ACETATE 667 MG CAP PO SCH ×2 (13:30→18:13)
[2021-06-09 13:44] LABS: Sodium Urine 40 mmol/L (40-220)
[2021-06-09 13:46] LABS: Creatinine, Urine 86 mg/dL (30.0-125.0)
[2021-06-09 13:47] LABS: Protein, Urine 209.6 mg/dL (0.0-11.9)
[2021-06-09] MEDS: cefTRIAXone 1GM/50ML D5W 50 ML IV SCH (14:23)
[2021-06-09] MEDS ORDERED: AMINO ACID INFUSION IN D10W 1,000 ML IV NR (20:00)
[2021-06-09] MEDS: ATORVASTATIN 20 MG TAB PO SCH (21:53)
[2021-06-10] MEDS: IPRATROPIUM BROM 0.5 MG/2.5ML INH SOL NEB SCH ×4 (00:17→18:32)
[2021-06-10] MEDS: ALBUTEROL SULF 2.5 MG/0.5ML(0.5%) NEB SOLN NEB SCH ×4 (00:17→18:32)
[2021-06-10 05:00] VITALS: BP 140/78
[2021-06-10 05:41] LABS: Basophils # (auto) 0.1 10 ^3/uL (0-0.2); Basophils % (auto) 0.4 % (0.0-2.0); Eosinophils # (auto) 1.1 10 ^3/uL (0-0.8); Hematocrit 21.7 % (41.0-53.0); Red Cell Distribution Width 14.2 % (11.8-14.3)
[2021-06-10 05:44] LABS: Eosinophils % (auto) 5.5 % (0.0-7.0); Hemoglobin 7.4 g/dL (13.5-17.5); Lymphocytes # (auto) 1.9 10 ^3/uL (0.4-5.4); Lymphocytes % (auto) 9.9 % (10.0-50.0); Mean Corpuscular Hemoglobin 27.7 pg (28.0-32.0); Mean Corpuscular Hgb Conc. 33.9 g/dL (32.0-36.0); Mean Corpuscular Volume 81.6 fL (80.0-100.0); Monocytes # (auto) 0.9 10 ^3/uL (0-1.3); Monocytes % (auto) 4.6 % (0.0-12.0); Neutrophils # (auto) 15.3 10 ^3/uL (1.6-8.6); Neutrophils % (auto) 79.6 % (37.0-80.0); Red Blood Cells 2.66 10^6/uL (4.5-5.90); White Blood Cell 19.2 10^3/uL (4.4-10.8)
[2021-06-10] MEDS: InsuLIN REG 1unit/0.01ml Soln (100units/ml) SC SCH ×4 (05:58→23:55)
[2021-06-10] MEDS: ACCU-CHEK COMFORT CURVE STRIP VI SCH ×4 (05:58→23:53)
[2021-06-10 06:06] LABS: INR 1.1 (0.9-1.15)
[2021-06-10 06:26] LABS: Calcium 8.2 mg/dL (8.5-10.1); Potassium 3.9 mmol/L (3.5-5.1)
[2021-06-10] MEDS: BUDESONIDE (INHALATION) 0.5 MG/2 ML NEB NEB SCH ×2 (06:39→18:33)
[2021-06-10] MEDS ORDERED: SODIUM CHL 0.9% 1000 ML BAG XX ONE (07:00)
[2021-06-10] MEDS: CALCIUM ACETATE 667 MG CAP PO SCH ×3 (08:00→18:11)
[2021-06-10 09:00] VITALS: BP 154/84
[2021-06-10] MEDS: cefTRIAXone 1GM/50ML D5W 50 ML IV SCH (09:00)
[2021-06-10] MEDS: INSULIN LANTUS (GLARGINE) 1 /0.01ml (100units/ml) SC SCH (10:00)
[2021-06-10] MEDS ORDERED: ceFAZolin 1GM/50ML 100 ML IV ONE (10:00)
[2021-06-10] MEDS ORDERED: fentaNYL CITRATE 100 MCG/2 ML VL ONE (10:18)
[2021-06-10] MEDS ORDERED: MEPERIDINE HCL (25 MG/ML) 1ML VIAL ONE (10:18)
[2021-06-10] MEDS ORDERED: MIDAZOLAM HCL 2MG/2ML 2ml VIAL (1mg/ml) ONE (10:19)
[2021-06-10] MEDS ORDERED: PROPOFOL 10 MG/ML 20 ML IV ONE (10:22)
[2021-06-10] MEDS ORDERED: DexAMETHasone SOD PHOS 10MG/1ML VIAL INJ ONE (10:22)
[2021-06-10] MEDS ORDERED: BUPIVACAINE 0.5% MPF INJ 30ML SDV IJ ONE (10:34)
[2021-06-10] MEDS ORDERED: ceFAZolin 1GM VL ONE ×2 (11:27→11:33)
[2021-06-10] MEDS ORDERED: MIDAZOLAM HCL 2MG/2ML 2ml VIAL (1mg/ml) IV PRN (11:45)
[2021-06-10] MEDS ORDERED: MORPHINE SULFATE 4 MG/ML SYR/VIAL IV PRN (11:45)
[2021-06-10] MEDS ORDERED: LABETALOL HCL 5 MG/ML 4ML SYRINGE IV PRN (11:45)
[2021-06-10] MEDS ORDERED: ONDANSETRON HCL 4 MG/2 ML VIAL IV PRN (11:45)
[2021-06-10] MEDS ORDERED: ePHEDrine SULFATE 50 MG/ML AMP IV PRN (11:45)
[2021-06-10] MEDS ORDERED: HYDROmorphone HCL 2 MG/ML VL IV PRN (11:45)
[2021-06-10] MEDS: SODIUM FERR GLUC 62.5MG/5ML 125 MG in SODIUM CHL 0.9% 100 ML IV SCH (12:00)
[2021-06-10 17:00] VITALS: BP 112/67
[2021-06-10 20:12] LABS: BUN/Creatinine Ratio 9.5; Calcium 7.8 mg/dL (8.5-10.1)
[2021-06-10] MEDS ORDERED: EPOETIN ALFA-EPBX 10,000 UNIT/1ML VIAL SC ONE (21:00)
[2021-06-10] MEDS: ATORVASTATIN 20 MG TAB PO SCH (21:49)
[2021-06-10] MEDS: ACETAMINOPHEN 325 MG TAB PO PRN (21:50)
[2021-06-10 22:00] VITALS: BP 111/61
[2021-06-11] VITALS (10 sets, daily range): BP systolic 110–134; BP diastolic 50–81
[2021-06-11] MEDS: ALBUTEROL SULF 2.5 MG/0.5ML(0.5%) NEB SOLN NEB SCH ×5 (01:22→23:40)
[2021-06-11] MEDS: IPRATROPIUM BROM 0.5 MG/2.5ML INH SOL NEB SCH ×5 (01:22→23:40)
[2021-06-11 05:22] LABS: Basophils # (auto) 0.1 10 ^3/uL (0-0.2); Basophils % (auto) 0.6 % (0.0-2.0); Mean Corpuscular Hemoglobin 28.1 pg (28.0-32.0)
[2021-06-11 05:25] LABS: Eosinophils # (auto) 0.8 10 ^3/uL (0-0.8); Hematocrit 18.6 % (41.0-53.0); Lymphocytes # (auto) 1.8 10 ^3/uL (0.4-5.4); Lymphocytes % (auto) 9.3 % (10.0-50.0); Mean Corpuscular Hgb Conc. 34.3 g/dL (32.0-36.0); Mean Corpuscular Volume 82.1 fL (80.0-100.0); Monocytes # (auto) 1.2 10 ^3/uL (0-1.3); Monocytes % (auto) 6.1 % (0.0-12.0); Neutrophils # (auto) 15.5 10 ^3/uL (1.6-8.6); Red Blood Cells 2.26 10^6/uL (4.5-5.90); White Blood Cell 19.3 10^3/uL (4.4-10.8)
[2021-06-11 05:45] LABS: BUN/Creatinine Ratio 9.6; Calcium 8.1 mg/dL (8.5-10.1)
[2021-06-11] MEDS: ACCU-CHEK COMFORT CURVE STRIP VI SCH ×3 (06:00→17:05)
[2021-06-11] MEDS: InsuLIN REG 1unit/0.01ml Soln (100units/ml) SC SCH ×3 (06:00→17:03)
[2021-06-11 06:32] LABS: Hemoglobin 6.4 g/dL (13.5-17.5)
[2021-06-11] MEDS: BUDESONIDE (INHALATION) 0.5 MG/2 ML NEB NEB SCH ×2 (07:02→18:20)
[2021-06-11] MEDS: INSULIN LANTUS (GLARGINE) 1 /0.01ml (100units/ml) SC SCH (09:41)
[2021-06-11] MEDS: cefTRIAXone 1GM/50ML D5W 50 ML IV SCH (09:42)
[2021-06-11] MEDS: CALCIUM ACETATE 667 MG CAP PO SCH ×3 (09:42→18:09)
[2021-06-11] MEDS ORDERED: LIDOCAINE 2%HCL (LOCAL ANESTH.) INJ 20ML MDV ONE ×2 (14:13→15:33)
[2021-06-11] MEDS ORDERED: HEPARIN SODIUM (PORCINE) 5000 UNITS/ML 1ML VIAL ONE (15:03)
[2021-06-11] MEDS ORDERED: diphenhdrAMINE HCL 50 MG/1 ML VL ONE (15:04)
[2021-06-11] MEDS ORDERED: fentaNYL CITRATE 100 MCG/2 ML VL ONE (15:04)
[2021-06-11] MEDS: ATORVASTATIN 20 MG TAB PO SCH (22:03)
[2021-06-12] MEDS: ACCU-CHEK COMFORT CURVE STRIP VI SCH ×4 (00:15→17:26)
[2021-06-12] MEDS: InsuLIN REG 1unit/0.01ml Soln (100units/ml) SC SCH ×5 (00:20→17:26)
[2021-06-12 05:00] VITALS: BP 146/85
[2021-06-12 05:59] LABS: Basophils # (auto) 0.1 10 ^3/uL (0-0.2); Basophils % (auto) 0.5 % (0.0-2.0); Eosinophils # (auto) 0.9 10 ^3/uL (0-0.8); Mean Corpuscular Hemoglobin 28.1 pg (28.0-32.0); Monocytes # (auto) 1.3 10 ^3/uL (0-1.3); Monocytes % (auto) 7.6 % (0.0-12.0)
[2021-06-12 06:01] LABS: Eosinophils % (auto) 5.5 % (0.0-7.0); Hematocrit 21.1 % (41.0-53.0); Hemoglobin 7.2 g/dL (13.5-17.5); Lymphocytes # (auto) 1.7 10 ^3/uL (0.4-5.4); Lymphocytes % (auto) 9.8 % (10.0-50.0); Mean Corpuscular Hgb Conc. 34.3 g/dL (32.0-36.0); Mean Corpuscular Volume 81.9 fL (80.0-100.0); Neutrophils % (auto) 76.6 % (37.0-80.0); Red Blood Cells 2.57 10^6/uL (4.5-5.90); Red Cell Distribution Width 14.2 % (11.8-14.3); White Blood Cell 16.9 10^3/uL (4.4-10.8)
[2021-06-12 06:11] LABS: Potassium 4.5 mmol/L (3.5-5.1)
[2021-06-12 06:18] LABS: BUN/Creatinine Ratio 9.5; Calcium 8.4 mg/dL (8.5-10.1)
[2021-06-12] MEDS ORDERED: SODIUM CHL 0.9% 1000 ML BAG XX ONE ×2 (07:00)
[2021-06-12 08:00] VITALS: BP 151/86
[2021-06-12] MEDS: CALCIUM ACETATE 667 MG CAP PO SCH ×3 (08:47→18:38)
[2021-06-12] MEDS: INSULIN LANTUS (GLARGINE) 1 /0.01ml (100units/ml) SC SCH (08:48)
[2021-06-12] MEDS: cefTRIAXone 1GM/50ML D5W 50 ML IV SCH (08:48)
[2021-06-12] MEDS: ALBUTEROL SULF 2.5 MG/0.5ML(0.5%) NEB SOLN NEB SCH ×3 (10:05→18:48)
[2021-06-12] MEDS: IPRATROPIUM BROM 0.5 MG/2.5ML INH SOL NEB SCH ×3 (10:06→18:48)
[2021-06-12] MEDS: BUDESONIDE (INHALATION) 0.5 MG/2 ML NEB NEB SCH ×2 (10:06→18:48)
[2021-06-12 13:00] VITALS: BP 152/85
[2021-06-12] MEDS ORDERED: CATHFLO ACTIVASE (ALTEPLASE) 2 MG VIAL IV ONE ×2 (13:15)
[2021-06-12] MEDS: ACETAMINOPHEN 325 MG TAB PO PRN (15:57)
[2021-06-12 16:42] VITALS: BP 151/80
[2021-06-12] MEDS: ATORVASTATIN 20 MG TAB PO SCH (21:00)
[2021-06-12] MEDS ORDERED: EPOETIN ALFA-EPBX 10,000 UNIT/1ML VIAL SC ONE ×2 (21:00)
[2021-06-12 22:00] VITALS: BP 124/74
[2021-06-13] VITALS (9 sets, daily range): BP systolic 113–129; BP diastolic 59–110
[2021-06-13] MEDS: ACCU-CHEK COMFORT CURVE STRIP VI SCH ×5 (00:49→23:34)
[2021-06-13 05:27] LABS: Basophils # (auto) 0.2 10 ^3/uL (0-0.2); Basophils % (auto) 1.2 % (0.0-2.0); Eosinophils # (auto) 1.1 10 ^3/uL (0-0.8); Eosinophils % (auto) 8.6 % (0.0-7.0); Hematocrit 20.5 % (41.0-53.0); Lymphocytes # (auto) 1.2 10 ^3/uL (0.4-5.4); Lymphocytes % (auto) 9.6 % (10.0-50.0); Mean Corpuscular Hemoglobin 28.1 pg (28.0-32.0); Mean Corpuscular Volume 82.6 fL (80.0-100.0); Monocytes # (auto) 1.2 10 ^3/uL (0-1.3); Monocytes % (auto) 9.1 % (0.0-12.0); Neutrophils # (auto) 9.2 10 ^3/uL (1.6-8.6); Neutrophils % (auto) 71.5 % (37.0-80.0); Potassium 4.1 mmol/L (3.5-5.1); Red Blood Cells 2.48 10^6/uL (4.5-5.90); Red Cell Distribution Width 14.5 % (11.8-14.3); White Blood Cell 12.9 10^3/uL (4.4-10.8)
[2021-06-13 05:32] LABS: BUN/Creatinine Ratio 8.8; Calcium 8.1 mg/dL (8.5-10.1)
[2021-06-13] MEDS: InsuLIN REG 1unit/0.01ml Soln (100units/ml) SC SCH ×5 (05:37→23:35)
[2021-06-13] MEDS: ALBUTEROL SULF 2.5 MG/0.5ML(0.5%) NEB SOLN NEB SCH ×4 (05:54→17:58)
[2021-06-13] MEDS: IPRATROPIUM BROM 0.5 MG/2.5ML INH SOL NEB SCH ×4 (05:54→17:58)
[2021-06-13] MEDS: CALCIUM ACETATE 667 MG CAP PO SCH ×3 (08:00→17:35)
[2021-06-13] MEDS: cefTRIAXone 1GM/50ML D5W 50 ML IV SCH (09:00)
[2021-06-13] MEDS: INSULIN LANTUS (GLARGINE) 1 /0.01ml (100units/ml) SC SCH (10:00)
[2021-06-13] MEDS: BUDESONIDE (INHALATION) 0.5 MG/2 ML NEB NEB SCH ×2 (10:00→17:59)
[2021-06-13] MEDS: ACETAMINOPHEN 325 MG TAB PO PRN (20:47)
[2021-06-13] MEDS: ATORVASTATIN 20 MG TAB PO SCH (21:10)
[2021-06-14] MEDS: IPRATROPIUM BROM 0.5 MG/2.5ML INH SOL NEB SCH ×4 (00:20→20:58)
[2021-06-14] MEDS: ALBUTEROL SULF 2.5 MG/0.5ML(0.5%) NEB SOLN NEB SCH ×4 (00:20→20:58)
[2021-06-14 05:00] VITALS: BP 137/78
[2021-06-14 05:29] LABS: Basophils # (auto) 0.1 10 ^3/uL (0-0.2); Basophils % (auto) 1.1 % (0.0-2.0); Eosinophils # (auto) 1.6 10 ^3/uL (0-0.8); Eosinophils % (auto) 11.9 % (0.0-7.0); Hematocrit 22.3 % (41.0-53.0); Hemoglobin 7.6 g/dL (13.5-17.5); Lymphocytes # (auto) 1.3 10 ^3/uL (0.4-5.4); Lymphocytes % (auto) 9.6 % (10.0-50.0); Mean Corpuscular Hemoglobin 28.4 pg (28.0-32.0); Mean Corpuscular Hgb Conc. 34.1 g/dL (32.0-36.0); Mean Corpuscular Volume 83.3 fL (80.0-100.0); Monocytes % (auto) 7.5 % (0.0-12.0); Neutrophils # (auto) 9.3 10 ^3/uL (1.6-8.6); Neutrophils % (auto) 69.9 % (37.0-80.0); Red Blood Cells 2.68 10^6/uL (4.5-5.90); Red Cell Distribution Width 14.3 % (11.8-14.3); White Blood Cell 13.3 10^3/uL (4.4-10.8)
[2021-06-14 05:50] LABS: BUN/Creatinine Ratio 8.5; Calcium 7.8 mg/dL (8.5-10.1); Potassium 4.4 mmol/L (3.5-5.1)
[2021-06-14] MEDS: InsuLIN REG 1unit/0.01ml Soln (100units/ml) SC SCH ×3 (06:08→18:00)
[2021-06-14] MEDS: ACCU-CHEK COMFORT CURVE STRIP VI SCH ×3 (06:08→18:10)
[2021-06-14] MEDS: BUDESONIDE (INHALATION) 0.5 MG/2 ML NEB NEB SCH ×2 (07:30→20:58)
[2021-06-14 08:00] VITALS: BP 132/78
[2021-06-14] MEDS: CALCIUM ACETATE 667 MG CAP PO SCH ×3 (08:26→18:10)
[2021-06-14] MEDS ORDERED: ZOLPIDEM TARTRATE 5 MG TAB PO PRN (09:30)
[2021-06-14] MEDS: cefTRIAXone 1GM/50ML D5W 50 ML IV SCH (09:42)
[2021-06-14] MEDS: INSULIN LANTUS (GLARGINE) 1 /0.01ml (100units/ml) SC SCH (09:47)
[2021-06-14 12:00] VITALS: BP 146/82
[2021-06-14] MEDS: ACETAMINOPHEN 325 MG TAB PO PRN (12:54)
[2021-06-14] MEDS: MORPHINE SULFATE INJECTION 2 MG/ML SYRG IV PRN (14:35)
[2021-06-14 16:00] VITALS: BP 136/80
[2021-06-14 16:29] VITALS: BP 136/80
[2021-06-14] MEDS: ATORVASTATIN 20 MG TAB PO SCH (21:06)
[2021-06-14 22:00] VITALS: BP 124/72
[2021-06-15] MEDS: ALBUTEROL SULF 2.5 MG/0.5ML(0.5%) NEB SOLN NEB SCH ×4 (00:09→18:50)
[2021-06-15] MEDS: IPRATROPIUM BROM 0.5 MG/2.5ML INH SOL NEB SCH ×4 (00:09→18:50)
[2021-06-15 05:00] VITALS: BP_SYST 128; BP_DIAS 71; BP_DIAS 91
[2021-06-15 05:38] LABS: Basophils # (auto) 0.1 10 ^3/uL (0-0.2); Eosinophils # (auto) 1.7 10 ^3/uL (0-0.8); Hemoglobin 7.3 g/dL (13.5-17.5); Lymphocytes # (auto) 1.4 10 ^3/uL (0.4-5.4); Lymphocytes % (auto) 11.7 % (10.0-50.0); Monocytes # (auto) 0.8 10 ^3/uL (0-1.3)
[2021-06-15 05:40] LABS: Basophils % (auto) 0.9 % (0.0-2.0); Hematocrit 20.8 % (41.0-53.0); Mean Corpuscular Hemoglobin 29.1 pg (28.0-32.0); Mean Corpuscular Hgb Conc. 35.2 g/dL (32.0-36.0); Mean Corpuscular Volume 82.6 fL (80.0-100.0); Monocytes % (auto) 6.7 % (0.0-12.0); Neutrophils % (auto) 66.7 % (37.0-80.0); Nucleated Red Blood Cells % 0.1 %; Red Blood Cells 2.51 10^6/uL (4.5-5.90); Red Cell Distribution Width 14.9 % (11.8-14.3)
[2021-06-15] MEDS: BUDESONIDE (INHALATION) 0.5 MG/2 ML NEB NEB SCH ×2 (05:49→18:51)
[2021-06-15] MEDS: ACCU-CHEK COMFORT CURVE STRIP VI SCH ×4 (05:53→17:49)
[2021-06-15 05:55] LABS: BUN/Creatinine Ratio 9.5; Calcium 8.1 mg/dL (8.5-10.1); Potassium 4.1 mmol/L (3.5-5.1)
[2021-06-15] MEDS: InsuLIN REG 1unit/0.01ml Soln (100units/ml) SC SCH ×4 (06:00→18:01)
[2021-06-15] MEDS ORDERED: SODIUM CHL 0.9% 1000 ML BAG XX ONE (07:00)
[2021-06-15 07:45] VITALS: BP 121/8
[2021-06-15] MEDS: CALCIUM ACETATE 667 MG CAP PO SCH ×3 (08:51→17:53)
[2021-06-15 09:00] VITALS: BP 121/68
[2021-06-15] MEDS ORDERED: FLUCONAZOLE 200MG/100ML 100 ML IV ONE (10:00)
[2021-06-15] MEDS: INSULIN LANTUS (GLARGINE) 1 /0.01ml (100units/ml) SC SCH (11:23)
[2021-06-15] MEDS: cefTRIAXone 1GM/50ML D5W 50 ML IV SCH (12:39)
[2021-06-15 15:32] VITALS: BP_SYST 121; BP_DIAS 68; BP_DIAS 79
[2021-06-15] MEDS: ACETAMINOPHEN 325 MG TAB PO PRN (16:15)
[2021-06-15] MEDS ORDERED: MORPHINE SULFATE INJECTION 2 MG/ML SYRG IV PRN (16:30)
[2021-06-15 17:00] VITALS: BP 128/80
[2021-06-15] MEDS: ATORVASTATIN 20 MG TAB PO SCH (20:39)
[2021-06-15] MEDS ORDERED: EPOETIN ALFA-EPBX 10,000 UNIT/1ML VIAL SC ONE (21:00)
[2021-06-15 21:33] VITALS: BP 124/67
[2021-06-16] MEDS: ACCU-CHEK COMFORT CURVE STRIP VI SCH ×5 (00:42→23:56)
[2021-06-16] MEDS: ALBUTEROL SULF 2.5 MG/0.5ML(0.5%) NEB SOLN NEB SCH ×5 (01:09→23:42)
[2021-06-16] MEDS: IPRATROPIUM BROM 0.5 MG/2.5ML INH SOL NEB SCH ×5 (01:10→23:42)
[2021-06-16 05:29] LABS: Hematocrit 21.4 % (41.0-53.0); Hemoglobin 7.6 g/dL (13.5-17.5); Mean Corpuscular Hemoglobin 29.7 pg (28.0-32.0); Mean Corpuscular Hgb Conc. 35.6 g/dL (32.0-36.0); Mean Corpuscular Volume 83.5 fL (80.0-100.0); Red Blood Cells 2.57 10^6/uL (4.5-5.90); Red Cell Distribution Width 14.5 % (11.8-14.3); White Blood Cell 11.1 10^3/uL (4.4-10.8)
[2021-06-16 05:30] VITALS: BP 123/86
[2021-06-16 05:34] LABS: Basophils % (manual) 0 (0.0-2.0); Blast Cells 0; Metamyelocytes % 0; Myelocytes % 0; Promyelocytes % 0; Reactive Lymphocytes 0
[2021-06-16] MEDS: InsuLIN REG 1unit/0.01ml Soln (100units/ml) SC SCH ×5 (05:50→23:56)
[2021-06-16 05:52] LABS: Potassium 4.2 mmol/L (3.5-5.1)
[2021-06-16] MEDS: BUDESONIDE (INHALATION) 0.5 MG/2 ML NEB NEB SCH ×2 (06:06→19:26)
[2021-06-16 06:17] LABS: Calcium 8.2 mg/dL (8.5-10.1)
[2021-06-16 07:01] LABS: Band Neutrophils % (manual) 2; Eosinophils % (manual) 10 (0-7); Lymphocytes % (manual) 14 (10.0-50.0); Monocytes % (manual) 6 (0-12)
[2021-06-16] MEDS: CALCIUM ACETATE 667 MG CAP PO SCH ×3 (08:29→18:00)
[2021-06-16] MEDS: cefTRIAXone 1GM/50ML D5W 50 ML IV SCH (08:29)
[2021-06-16 09:00] VITALS: BP 123/76
[2021-06-16] MEDS: FUROSEMIDE 100 MG/10ML VIAL IV SCH (10:51)
[2021-06-16] MEDS: FLUCONAZOLE 200MG/100ML 100 ML IV SCH (10:51)
[2021-06-16] MEDS: INSULIN LANTUS (GLARGINE) 1 /0.01ml (100units/ml) SC SCH (11:01)
[2021-06-16 13:00] VITALS: BP 118/70
[2021-06-16 16:47] LABS: BUN/Creatinine Ratio 9.6; Calcium 8.2 mg/dL (8.5-10.1); Potassium 4.3 mmol/L (3.5-5.1)
[2021-06-16 17:00] VITALS: BP 135/80
[2021-06-16] MEDS: ACETAMINOPHEN 325 MG TAB PO PRN (18:59)
[2021-06-16 19:28] VITALS: BP 135/80
[2021-06-16] MEDS: ATORVASTATIN 20 MG TAB PO SCH (21:52)
[2021-06-16 22:00] VITALS: BP 125/72
[2021-06-17 04:40] VITALS: BP 136/82
[2021-06-17] MEDS: InsuLIN REG 1unit/0.01ml Soln (100units/ml) SC SCH ×3 (05:28→18:00)
[2021-06-17] MEDS: ACCU-CHEK COMFORT CURVE STRIP VI SCH ×3 (05:28→18:00)
[2021-06-17 05:31] LABS: Hemoglobin 7.6 g/dL (13.5-17.5); White Blood Cell 11.7 10^3/uL (4.4-10.8)
[2021-06-17 05:35] LABS: Hematocrit 22.3 % (41.0-53.0); Mean Corpuscular Hemoglobin 28.2 pg (28.0-32.0); Mean Corpuscular Hgb Conc. 34.1 g/dL (32.0-36.0); Mean Corpuscular Volume 82.5 fL (80.0-100.0); Red Cell Distribution Width 14.2 % (11.8-14.3)
[2021-06-17 05:52] LABS: Band Neutrophils % (manual) 0; Basophils % (manual) 0 (0.0-2.0); Blast Cells 0; Metamyelocytes % 0; Myelocytes % 0; Promyelocytes % 0; Reactive Lymphocytes 0
[2021-06-17] MEDS: IPRATROPIUM BROM 0.5 MG/2.5ML INH SOL NEB SCH ×4 (06:02→22:40)
[2021-06-17] MEDS: ALBUTEROL SULF 2.5 MG/0.5ML(0.5%) NEB SOLN NEB SCH ×4 (06:02→22:40)
[2021-06-17] MEDS: BUDESONIDE (INHALATION) 0.5 MG/2 ML NEB NEB SCH ×2 (06:02→19:25)
[2021-06-17 06:22] LABS: Calcium 8.5 mg/dL (8.5-10.1); Potassium 4.1 mmol/L (3.5-5.1)
[2021-06-17 06:25] LABS: BUN/Creatinine Ratio 10.6
[2021-06-17 07:45] LABS: Eosinophils % (manual) 18 (0-7); Lymphocytes % (manual) 14 (10.0-50.0); Monocytes % (manual) 6 (0-12)
[2021-06-17 07:57] VITALS: BP 128/77
[2021-06-17] MEDS: cefTRIAXone 1GM/50ML D5W 50 ML IV SCH (09:31)
[2021-06-17] MEDS: CALCIUM ACETATE 667 MG CAP PO SCH ×3 (09:34→18:00)
[2021-06-17] MEDS: FUROSEMIDE 100 MG/10ML VIAL IV SCH (09:35)
[2021-06-17] MEDS: INSULIN LANTUS (GLARGINE) 1 /0.01ml (100units/ml) SC SCH (10:26)
[2021-06-17] MEDS: FLUCONAZOLE 200MG/100ML 100 ML IV SCH (10:30)
[2021-06-17] MEDS: HYDROcodone-ACET 5/325MG TAB PO PRN ×2 (11:07→20:25)
[2021-06-17 12:00] VITALS: BP 136/81
[2021-06-17 14:50] LABS: BUN/Creatinine Ratio 10.1; Calcium 8.3 mg/dL (8.5-10.1); Potassium 4.1 mmol/L (3.5-5.1)
[2021-06-17 16:00] VITALS: BP 117/75
[2021-06-17] MEDS: ATORVASTATIN 20 MG TAB PO SCH (21:24)
[2021-06-17 21:51] VITALS: BP 125/70
[2021-06-18] MEDS: ACCU-CHEK COMFORT CURVE STRIP VI SCH ×4 (00:03→17:32)
[2021-06-18 04:57] VITALS: BP 131/75
[2021-06-18 05:24] LABS: White Blood Cell 10.3 10^3/uL (4.4-10.8)
[2021-06-18 05:27] LABS: Hematocrit 21.6 % (41.0-53.0); Hemoglobin 7.6 g/dL (13.5-17.5); Mean Corpuscular Hemoglobin 28.9 pg (28.0-32.0); Mean Corpuscular Hgb Conc. 35.3 g/dL (32.0-36.0); Red Blood Cells 2.64 10^6/uL (4.5-5.90); Red Cell Distribution Width 14.3 % (11.8-14.3)
[2021-06-18 05:49] LABS: Potassium 3.9 mmol/L (3.5-5.1)
[2021-06-18 05:53] LABS: BUN/Creatinine Ratio 11.3; Calcium 8.5 mg/dL (8.5-10.1)
[2021-06-18] MEDS: InsuLIN REG 1unit/0.01ml Soln (100units/ml) SC SCH ×4 (06:00→18:15)
[2021-06-18 06:01] LABS: Basophils % (manual) 0 (0.0-2.0); Blast Cells 0; Metamyelocytes % 0; Myelocytes % 0; Promyelocytes % 0; Reactive Lymphocytes 0
[2021-06-18] MEDS: IPRATROPIUM BROM 0.5 MG/2.5ML INH SOL NEB SCH ×4 (06:03→19:25)
[2021-06-18] MEDS: ALBUTEROL SULF 2.5 MG/0.5ML(0.5%) NEB SOLN NEB SCH ×4 (06:03→19:26)
[2021-06-18 07:50] VITALS: BP 123/79
[2021-06-18] MEDS: CALCIUM ACETATE 667 MG CAP PO SCH ×3 (08:33→18:14)
[2021-06-18] MEDS: cefTRIAXone 1GM/50ML D5W 50 ML IV SCH (08:33)
[2021-06-18 08:38] LABS: Band Neutrophils % (manual) 2; Lymphocytes % (manual) 10 (10.0-50.0); Monocytes % (manual) 3 (0-12)
[2021-06-18 08:39] LABS: Eosinophils % (manual) 11 (0-7)
[2021-06-18 09:00] VITALS: BP 123/79
[2021-06-18] MEDS ORDERED: LIDOCAINE 2%HCL (LOCAL ANESTH.) INJ 20ML MDV ONE (09:27)
[2021-06-18] MEDS: INSULIN LANTUS (GLARGINE) 1 /0.01ml (100units/ml) SC SCH (09:30)
[2021-06-18] MEDS: BUDESONIDE (INHALATION) 0.5 MG/2 ML NEB NEB SCH ×2 (10:00→19:25)
[2021-06-18] MEDS: FLUCONAZOLE 200MG/100ML 100 ML IV SCH (11:15)
[2021-06-18] MEDS: FUROSEMIDE 100 MG/10ML VIAL IV SCH (11:15)
[2021-06-18] MEDS ORDERED: FURO1TAB32 PO (11:47)
[2021-06-18] MEDS ORDERED: FLUC200T50 PO (11:47)
[2021-06-18] MEDS ORDERED: POTA10TA51 PO (11:47)
[2021-06-18] MEDS ORDERED: INSREGI SC (11:47)
[2021-06-18] MEDS ORDERED: CALC667C5 PO (11:47)
[2021-06-18] MEDS ORDERED: INSLANTI SC (11:54)
[2021-06-18 13:00] VITALS: BP 115/73
[2021-06-18 16:36] VITALS: BP 121/73
[2021-06-18] MEDS: ATORVASTATIN 20 MG TAB PO SCH (21:59)
[2021-06-18 22:07] VITALS: BP 125/72
[2021-06-19] MEDS: IPRATROPIUM BROM 0.5 MG/2.5ML INH SOL NEB SCH ×5 (00:06→20:31)
[2021-06-19] MEDS: ALBUTEROL SULF 2.5 MG/0.5ML(0.5%) NEB SOLN NEB SCH ×5 (00:06→20:32)
[2021-06-19] MEDS: ACCU-CHEK COMFORT CURVE STRIP VI SCH ×4 (00:11→18:00)
[2021-06-19 05:30] VITALS: BP 128/85
[2021-06-19] MEDS: InsuLIN REG 1unit/0.01ml Soln (100units/ml) SC SCH ×4 (06:00→18:00)
[2021-06-19] MEDS: BUDESONIDE (INHALATION) 0.5 MG/2 ML NEB NEB SCH ×2 (06:09→20:06)
[2021-06-19] MEDS: CALCIUM ACETATE 667 MG CAP PO SCH ×3 (08:07→18:36)
[2021-06-19] MEDS: cefTRIAXone 1GM/50ML D5W 50 ML IV SCH (08:07)
[2021-06-19 09:00] VITALS: BP 117/77
[2021-06-19] MEDS ORDERED: ONDANSETRON HCL 4 MG/2 ML VIAL IV PRN (09:00)
[2021-06-19 10:46] LABS: Hematocrit 22.5 % (41.0-53.0); Red Cell Distribution Width 14.5 % (11.8-14.3)
[2021-06-19 10:47] LABS: Hemoglobin 7.6 g/dL (13.5-17.5); Mean Corpuscular Volume 82.3 fL (80.0-100.0); Red Blood Cells 2.73 10^6/uL (4.5-5.90); White Blood Cell 11.2 10^3/uL (4.4-10.8)
[2021-06-19 10:51] LABS: Band Neutrophils % (manual) 0; Blast Cells 0; Metamyelocytes % 0; Myelocytes % 0; Promyelocytes % 0; Reactive Lymphocytes 0
[2021-06-19 11:00] LABS: BUN/Creatinine Ratio 13.2; Calcium 8.6 mg/dL (8.5-10.1); Potassium 4.2 mmol/L (3.5-5.1)
[2021-06-19] MEDS: FUROSEMIDE 100 MG/10ML VIAL IV SCH (11:41)
[2021-06-19] MEDS: INSULIN LANTUS (GLARGINE) 1 /0.01ml (100units/ml) SC SCH (11:41)
[2021-06-19] MEDS: FLUCONAZOLE 200MG/100ML 100 ML IV SCH (11:42)
[2021-06-19 12:13] LABS: Cholesterol 120 mg/dL (< 200)
[2021-06-19 12:15] LABS: HDL Cholesterol 24 mg/dL (40-59); LDL Cholesterol 60 mg/dL (< 100); Triglycerides 207 mg/dL (< 150)
[2021-06-19 12:16] LABS: Basophils % (manual) 1 (0.0-2.0); Eosinophils % (manual) 16 (0-7); Lymphocytes % (manual) 13 (10.0-50.0); Monocytes % (manual) 3 (0-12)
[2021-06-19 13:00] VITALS: BP 121/58
[2021-06-19 16:44] VITALS: BP 111/67
[2021-06-19 22:00] VITALS: BP 120/71
[2021-06-19] MEDS: ATORVASTATIN 20 MG TAB PO SCH (22:35)
[2021-06-20 05:00] VITALS: BP 132/81
[2021-06-20 05:41] LABS: Mean Corpuscular Volume 82.8 fL (80.0-100.0)
[2021-06-20 05:45] LABS: Hematocrit 23.7 % (41.0-53.0); Hemoglobin 7.9 g/dL (13.5-17.5); Mean Corpuscular Hemoglobin 27.7 pg (28.0-32.0); Mean Corpuscular Hgb Conc. 33.5 g/dL (32.0-36.0); Red Blood Cells 2.87 10^6/uL (4.5-5.90); Red Cell Distribution Width 14.5 % (11.8-14.3); White Blood Cell 10.2 10^3/uL (4.4-10.8)
[2021-06-20 05:58] LABS: Calcium 8.6 mg/dL (8.5-10.1); Potassium 4.2 mmol/L (3.5-5.1)
[2021-06-20 06:00] LABS: BUN/Creatinine Ratio 14.4
[2021-06-20] MEDS: InsuLIN REG 1unit/0.01ml Soln (100units/ml) SC SCH ×4 (06:00→18:01)
[2021-06-20] MEDS: ACCU-CHEK COMFORT CURVE STRIP VI SCH ×4 (06:03→18:00)
[2021-06-20 06:06] LABS: Band Neutrophils % (manual) 0; Basophils % (manual) 0 (0.0-2.0); Metamyelocytes % 0
[2021-06-20 06:07] LABS: Blast Cells 0; Myelocytes % 0; Promyelocytes % 0; Reactive Lymphocytes 0
[2021-06-20] MEDS: BUDESONIDE (INHALATION) 0.5 MG/2 ML NEB NEB SCH (06:53)
[2021-06-20] MEDS: ALBUTEROL SULF 2.5 MG/0.5ML(0.5%) NEB SOLN NEB SCH (06:53)
[2021-06-20] MEDS: IPRATROPIUM BROM 0.5 MG/2.5ML INH SOL NEB SCH (06:53)
[2021-06-20] MEDS: cefTRIAXone 1GM/50ML D5W 50 ML IV SCH (08:21)
[2021-06-20] MEDS: CALCIUM ACETATE 667 MG CAP PO SCH ×3 (08:23→17:44)
[2021-06-20 09:00] VITALS: BP 119/76
[2021-06-20 09:33] LABS: Eosinophils % (manual) 11 (0-7); Lymphocytes % (manual) 28 (10.0-50.0); Monocytes % (manual) 1 (0-12)
[2021-06-20] MEDS: FLUCONAZOLE 200MG/100ML 100 ML IV SCH (10:32)
[2021-06-20] MEDS: FUROSEMIDE 100 MG/10ML VIAL IV SCH (10:32)
[2021-06-20] MEDS: INSULIN LANTUS (GLARGINE) 1 /0.01ml (100units/ml) SC SCH (10:52)
[2021-06-20 13:00] VITALS: BP 117/74
[2021-06-20 16:45] VITALS: BP 131/80
[2021-06-20] MEDS ORDERED: IPRATROPIUM BROM 0.5 MG/2.5ML INH SOL NEB PRN (18:00)
[2021-06-20] MEDS ORDERED: ALBUTEROL SULF 2.5 MG/0.5ML(0.5%) NEB SOLN NEB PRN (18:00)
[2021-06-20] MEDS: ATORVASTATIN 20 MG TAB PO SCH (21:47)
[2021-06-20 21:52] VITALS: BP 132/82
[2021-06-21] MEDS: ACCU-CHEK COMFORT CURVE STRIP VI SCH ×4 (00:16→23:36)
[2021-06-21 05:00] VITALS: BP 128/84
[2021-06-21 06:01] LABS: BUN/Creatinine Ratio 15.8; Phosphorus 4.7 mg/dL (2.5-4.90); Potassium 3.9 mmol/L (3.5-5.1)
[2021-06-21] MEDS: CALCIUM ACETATE 667 MG CAP PO SCH ×3 (08:33→17:37)
[2021-06-21] MEDS: cefTRIAXone 1GM/50ML D5W 50 ML IV SCH (08:33)
[2021-06-21 09:00] VITALS: BP 132/80
[2021-06-21] MEDS: FUROSEMIDE 100 MG/10ML VIAL IV SCH (10:17)
[2021-06-21] MEDS: FLUCONAZOLE 200MG/100ML 100 ML IV SCH (10:17)
[2021-06-21] MEDS: INSULIN LANTUS (GLARGINE) 1 /0.01ml (100units/ml) SC SCH (10:44)
[2021-06-21] MEDS: InsuLIN REG 1unit/0.01ml Soln (100units/ml) SC SCH ×4 (12:36→23:36)
[2021-06-21 13:00] VITALS: BP 142/81
[2021-06-21] MEDS: SODIUM FERR GLUC 62.5MG/5ML 125 MG in SODIUM CHL 0.9% 100 ML IV SCH (13:35)
[2021-06-21 17:00] VITALS: BP 139/83
[2021-06-21] MEDS: ATORVASTATIN 20 MG TAB PO SCH (21:45)
[2021-06-21 22:00] VITALS: BP 138/80
[2021-06-22 05:00] VITALS: BP 133/77
[2021-06-22 05:52] LABS: Calcium 9.1 mg/dL (8.5-10.1); Potassium 3.7 mmol/L (3.5-5.1)
[2021-06-22 05:55] LABS: BUN/Creatinine Ratio 14.7
[2021-06-22] MEDS: InsuLIN REG 1unit/0.01ml Soln (100units/ml) SC SCH ×3 (06:00→17:41)
[2021-06-22] MEDS: ACCU-CHEK COMFORT CURVE STRIP VI SCH ×3 (06:08→17:41)
[2021-06-22] MEDS ORDERED: LACTULOSE 20Gm/30ML SOLN PO PRN (08:30)
[2021-06-22 09:00] VITALS: BP 124/73
[2021-06-22] MEDS: cefTRIAXone 1GM/50ML D5W 50 ML IV SCH (10:28)
[2021-06-22] MEDS: FLUCONAZOLE 200MG/100ML 100 ML IV SCH (10:28)
[2021-06-22] MEDS: FUROSEMIDE 100 MG/10ML VIAL IV SCH (10:29)
[2021-06-22] MEDS: INSULIN LANTUS (GLARGINE) 1 /0.01ml (100units/ml) SC SCH (11:02)
[2021-06-22] MEDS: SODIUM FERR GLUC 62.5MG/5ML 125 MG in SODIUM CHL 0.9% 100 ML IV SCH (14:19)
[2021-06-22 17:00] VITALS: BP 134/85
[2021-06-22] MEDS: ATORVASTATIN 20 MG TAB PO SCH (21:31)
[2021-06-22 22:00] VITALS: BP 122/76
[2021-06-23] MEDS: ACCU-CHEK COMFORT CURVE STRIP VI SCH ×5 (00:27→23:46)
[2021-06-23 05:00] VITALS: BP 123/71
[2021-06-23] MEDS: InsuLIN REG 1unit/0.01ml Soln (100units/ml) SC SCH ×5 (06:00→23:46)
[2021-06-23 06:27] LABS: BUN/Creatinine Ratio 15.3; Calcium 8.9 mg/dL (8.5-10.1); Potassium 3.4 mmol/L (3.5-5.1)
[2021-06-23] MEDS: cefTRIAXone 1GM/50ML D5W 50 ML IV SCH (07:37)
[2021-06-23 09:00] VITALS: BP 125/69
[2021-06-23] MEDS: FLUCONAZOLE 200MG/100ML 100 ML IV SCH (11:18)
[2021-06-23] MEDS: FUROSEMIDE 100 MG/10ML VIAL IV SCH (11:19)
[2021-06-23] MEDS: INSULIN LANTUS (GLARGINE) 1 /0.01ml (100units/ml) SC SCH (11:20)
[2021-06-23] MEDS ORDERED: POTASSIUM EFFERVESENT TAB 25 MEQ GT ONE (11:30)
[2021-06-23 13:00] VITALS: BP_SYST 130; BP_SYST 135; BP_SYST 141; BP_DIAS 72; BP_DIAS 77; BP_DIAS 95
[2021-06-23] MEDS: SODIUM FERR GLUC 62.5MG/5ML 125 MG in SODIUM CHL 0.9% 100 ML IV SCH (13:02)
[2021-06-23 17:00] VITALS: BP 139/79
[2021-06-23] MEDS: ATORVASTATIN 20 MG TAB PO SCH (21:40)
[2021-06-23 22:00] VITALS: BP 135/82
[2021-06-24 05:00] VITALS: BP 129/81
[2021-06-24] MEDS: ACCU-CHEK COMFORT CURVE STRIP VI SCH ×4 (05:48→23:38)
[2021-06-24 05:51] LABS: Basophils # (auto) 0.2 10 ^3/uL (0-0.2); Eosinophils # (auto) 1.4 10 ^3/uL (0-0.8); Hemoglobin 8.9 g/dL (13.5-17.5); Monocytes # (auto) 0.8 10 ^3/uL (0-1.3); Neutrophils # (auto) 6.4 10 ^3/uL (1.6-8.6)
[2021-06-24] MEDS: InsuLIN REG 1unit/0.01ml Soln (100units/ml) SC SCH ×4 (05:53→23:37)
[2021-06-24 05:54] LABS: Eosinophils % (auto) 12.8 % (0.0-7.0); Hematocrit 26.4 % (41.0-53.0); Lymphocytes % (auto) 18.4 % (10.0-50.0); Mean Corpuscular Hemoglobin 27.9 pg (28.0-32.0); Mean Corpuscular Hgb Conc. 33.7 g/dL (32.0-36.0); Mean Corpuscular Volume 82.7 fL (80.0-100.0); Monocytes % (auto) 7.3 % (0.0-12.0); Neutrophils % (auto) 59.5 % (37.0-80.0); Red Blood Cells 3.19 10^6/uL (4.5-5.90); Red Cell Distribution Width 14.7 % (11.8-14.3); White Blood Cell 10.8 10^3/uL (4.4-10.8)
[2021-06-24 06:20] LABS: BUN/Creatinine Ratio 16.2; Potassium 4.1 mmol/L (3.5-5.1)
[2021-06-24] MEDS: cefTRIAXone 1GM/50ML D5W 50 ML IV SCH (08:04)
[2021-06-24 09:00] VITALS: BP 129/80
[2021-06-24] MEDS: FLUCONAZOLE 200MG/100ML 100 ML IV SCH (09:29)
[2021-06-24] MEDS: INSULIN LANTUS (GLARGINE) 1 /0.01ml (100units/ml) SC SCH (11:21)
[2021-06-24] MEDS: FUROSEMIDE 100 MG/10ML VIAL IV SCH (12:07)
[2021-06-24 13:00] VITALS: BP 141/69
[2021-06-24] MEDS: SODIUM FERR GLUC 62.5MG/5ML 125 MG in SODIUM CHL 0.9% 100 ML IV SCH (14:52)
[2021-06-24 17:00] VITALS: BP 139/82
[2021-06-24 22:00] VITALS: BP 139/88
[2021-06-24] MEDS: ATORVASTATIN 20 MG TAB PO SCH (23:00)
[2021-06-25 05:00] VITALS: BP 131/82
[2021-06-25 05:45] LABS: Basophils # (auto) 0.2 10 ^3/uL (0-0.2); Monocytes # (auto) 0.7 10 ^3/uL (0-1.3)
[2021-06-25] MEDS: ACCU-CHEK COMFORT CURVE STRIP VI SCH ×3 (05:45→18:09)
[2021-06-25] MEDS: InsuLIN REG 1unit/0.01ml Soln (100units/ml) SC SCH ×3 (05:45→18:00)
[2021-06-25 05:48] LABS: Basophils % (auto) 2.8 % (0.0-2.0); Eosinophils % (auto) 12.2 % (0.0-7.0); Hematocrit 28.2 % (41.0-53.0); Hemoglobin 9.4 g/dL (13.5-17.5); Lymphocytes # (auto) 1.9 10 ^3/uL (0.4-5.4); Lymphocytes % (auto) 23.2 % (10.0-50.0); Mean Corpuscular Hemoglobin 27.8 pg (28.0-32.0); Mean Corpuscular Hgb Conc. 33.5 g/dL (32.0-36.0); Monocytes % (auto) 7.8 % (0.0-12.0); Neutrophils # (auto) 4.5 10 ^3/uL (1.6-8.6); Nucleated Red Blood Cells % 0.1 %; White Blood Cell 8.4 10^3/uL (4.4-10.8)
[2021-06-25 06:11] LABS: BUN/Creatinine Ratio 16.8; Calcium 8.9 mg/dL (8.5-10.1); Potassium 3.6 mmol/L (3.5-5.1)
[2021-06-25 08:00] VITALS: BP 132/77
[2021-06-25] MEDS: INSULIN LANTUS (GLARGINE) 1 /0.01ml (100units/ml) SC SCH (10:00)
[2021-06-25] MEDS: FLUCONAZOLE 200MG/100ML 100 ML IV SCH ×2 (10:00→11:30)
[2021-06-25] MEDS: FUROSEMIDE 100 MG/10ML VIAL IV SCH (10:00)
[2021-06-25] MEDS: cefTRIAXone 1GM/50ML D5W 50 ML IV SCH (11:16)
[2021-06-25] MEDS: SODIUM FERR GLUC 62.5MG/5ML 125 MG in SODIUM CHL 0.9% 100 ML IV SCH (12:00)
[2021-06-25 13:00] VITALS: BP 143/84
[2021-06-25 17:00] VITALS: BP 135/87
[2021-06-25 21:32] VITALS: BP 131/80
[2021-06-25] MEDS: ATORVASTATIN 20 MG TAB PO SCH (22:14)
[2021-06-26 04:30] VITALS: BP 123/84
[2021-06-26] MEDS: InsuLIN REG 1unit/0.01ml Soln (100units/ml) SC SCH ×3 (06:00→12:39)
[2021-06-26] MEDS: ACCU-CHEK COMFORT CURVE STRIP VI SCH ×3 (06:00→12:00)
[2021-06-26 06:42] LABS: Basophils # (auto) 0.2 10 ^3/uL (0-0.2); Basophils % (auto) 2.5 % (0.0-2.0); Eosinophils # (auto) 0.9 10 ^3/uL (0-0.8); Hemoglobin 9.3 g/dL (13.5-17.5); Nucleated Red Blood Cells % 0.1 %
[2021-06-26 06:48] LABS: Eosinophils % (auto) 10.3 % (0.0-7.0); Hematocrit 27.3 % (41.0-53.0); Lymphocytes % (auto) 22.3 % (10.0-50.0); Mean Corpuscular Hemoglobin 28.2 pg (28.0-32.0); Monocytes # (auto) 0.7 10 ^3/uL (0-1.3); Monocytes % (auto) 8.4 % (0.0-12.0); Neutrophils % (auto) 56.5 % (37.0-80.0); Red Blood Cells 3.29 10^6/uL (4.5-5.90); Red Cell Distribution Width 14.8 % (11.8-14.3); White Blood Cell 8.9 10^3/uL (4.4-10.8)
[2021-06-26 07:11] LABS: BUN/Creatinine Ratio 15.1; Calcium 8.7 mg/dL (8.5-10.1); Potassium 3.8 mmol/L (3.5-5.1)
[2021-06-26] MEDS: cefTRIAXone 1GM/50ML D5W 50 ML IV SCH (08:49)
[2021-06-26] MEDS: INSULIN LANTUS (GLARGINE) 1 /0.01ml (100units/ml) SC SCH (10:45)
[2021-06-26] MEDS: FUROSEMIDE 100 MG/10ML VIAL IV SCH (10:54)
[2021-06-26] MEDS: SODIUM FERR GLUC 62.5MG/5ML 125 MG in SODIUM CHL 0.9% 100 ML IV SCH (13:00)
== END 2021-06-26 15:40 | DRG 710 ==
LOC: EDBD 18:51 → ER 18:55 → TELE 20:59 → DOU IN ICU 05-28 08:12 → TELE-CENTR 06-08 11:42 → CENTRAL 06-20 17:06 → WEST WING 06-21 11:20
PROVIDERS: ADMIT Hospitalist; ATTEND Internal Medicine Pulmonary Disease
PROC: 5A1955Z Respiratory Ventilation, Greater than 96 Consecutive Hours (ICD-10-PCS; 2021-05-28)
PROC: 0BH17EZ Insertion of Endotracheal Airway into Trachea, Via Natural or Artificial Opening (ICD-10-PCS; 2021-05-28)
PROC: 0Y6Q0Z0 Detachment at Left 1st Toe, Complete, Open Approach (ICD-10-PCS; 2021-05-30)
PROC: 0QBP0ZZ Excision of Left Metatarsal, Open Approach (ICD-10-PCS; 2021-05-30)
PROC: 05HM33Z Insertion of Infusion Device into Right Internal Jugular Vein, Percutaneous Approach (ICD-10-PCS; 2021-06-01)
PROC: B543ZZA Ultrasonography of Right Jugular Veins, Guidance (ICD-10-PCS; 2021-06-01)
PROC: 5A1D70Z Performance of Urinary Filtration, Intermittent, Less than 6 Hours Per Day (ICD-10-PCS; 2021-06-01)
PROC: 5A1D70Z Performance of Urinary Filtration, Intermittent, Less than 6 Hours Per Day (ICD-10-PCS; 2021-06-03)
PROC: 5A1D70Z Performance of Urinary Filtration, Intermittent, Less than 6 Hours Per Day (ICD-10-PCS; 2021-06-05)
PROC: 5A1D70Z Performance of Urinary Filtration, Intermittent, Less than 6 Hours Per Day (ICD-10-PCS; 2021-06-08)
PROC: 30233N1 Transfusion of Nonautologous Red Blood Cells into Peripheral Vein, Percutaneous Approach (ICD-10-PCS; 2021-06-09)
PROC: 0QTP0ZZ Resection of Left Metatarsal, Open Approach (ICD-10-PCS; 2021-06-10)
PROC: 0Y6S0Z0 Detachment at Left 2nd Toe, Complete, Open Approach (ICD-10-PCS; 2021-06-10)
PROC: 0Y6Y0Z0 Detachment at Left 5th Toe, Complete, Open Approach (ICD-10-PCS; 2021-06-10)
PROC: 0Y6U0Z0 Detachment at Left 3rd Toe, Complete, Open Approach (ICD-10-PCS; 2021-06-10)
PROC: 5A1D70Z Performance of Urinary Filtration, Intermittent, Less than 6 Hours Per Day (ICD-10-PCS; 2021-06-10)
PROC: 0Y6N0Z7 Detachment at Left Foot, Complete 4th Ray, Open Approach (ICD-10-PCS; 2021-06-10)
PROC: 0JH63XZ Insertion of Tunneled Vascular Access Device into Chest Subcutaneous Tissue and Fascia, Percutaneous Approach (ICD-10-PCS; principal; 2021-06-11)
PROC: 02H633Z Insertion of Infusion Device into Right Atrium, Percutaneous Approach (ICD-10-PCS; 2021-06-11)
PROC: B5181ZA Fluoroscopy of Superior Vena Cava using Low Osmolar Contrast, Guidance (ICD-10-PCS; 2021-06-11)
PROC: 05HC33Z Insertion of Infusion Device into Left Basilic Vein, Percutaneous Approach (ICD-10-PCS; 2021-06-12)
PROC: B54NZZA Ultrasonography of Left Upper Extremity Veins, Guidance (ICD-10-PCS; 2021-06-12)
PROC: 5A1D70Z Performance of Urinary Filtration, Intermittent, Less than 6 Hours Per Day (ICD-10-PCS; 2021-06-12)
PROC: 5A1D70Z Performance of Urinary Filtration, Intermittent, Less than 6 Hours Per Day (ICD-10-PCS; 2021-06-15)
PROC: 0JPV3XZ Removal of Tunneled Vascular Access Device from Upper Extremity Subcutaneous Tissue and Fascia, Percutaneous Approach (ICD-10-PCS; 2021-06-18)
DX: A41.9 Sepsis, unspecified organism (principal); J96.01 Acute respiratory failure with hypoxia; N17.0 Acute kidney failure with tubular necrosis; R65.21 Severe sepsis with septic shock; E10.10 Type 1 diabetes mellitus with ketoacidosis without coma; L89.153 Pressure ulcer of sacral region, stage 3; E10.21 Type 1 diabetes mellitus with diabetic nephropathy; D62 Acute posthemorrhagic anemia; E43 Unspecified severe protein-calorie malnutrition; L89.313 Pressure ulcer of right buttock, stage 3; E10.52 Type 1 diabetes mellitus with diabetic peripheral angiopathy with gangrene; E87.1 Hypo-osmolality and hyponatremia; E10.621 Type 1 diabetes mellitus with foot ulcer; L97.509 Non-pressure chronic ulcer of other part of unspecified foot with unspecified severity; N18.6 End stage renal disease; E87.5 Hyperkalemia; E07.81 Sick-euthyroid syndrome; E56.9 Vitamin deficiency, unspecified; E83.39 Other disorders of phosphorus metabolism; Z20.822 Contact with and (suspected) exposure to COVID-19; M86.8X7 Other osteomyelitis, ankle and foot; E10.622 Type 1 diabetes mellitus with other skin ulcer; E10.22 Type 1 diabetes mellitus with diabetic chronic kidney disease; L03.116 Cellulitis of left lower limb; D47.3 Essential (hemorrhagic) thrombocythemia; L98.429 Non-pressure chronic ulcer of back with unspecified severity; J45.909 Unspecified asthma, uncomplicated; E66.01 Morbid (severe) obesity due to excess calories; E78.5 Hyperlipidemia, unspecified; E10.628 Type 1 diabetes mellitus with other skin complications; B95.1 Streptococcus, group B, as the cause of diseases classified elsewhere; E10.40 Type 1 diabetes mellitus with diabetic neuropathy, unspecified; E10.69 Type 1 diabetes mellitus with other specified complication; Z99.2 Dependence on renal dialysis; Z68.34 Body mass index [BMI] 34.0-34.9, adult; Z83.3 Family history of diabetes mellitus; Z91.19 Patient's noncompliance with other medical treatment and regimen; Z82.49 Family history of ischemic heart disease and other diseases of the circulatory system; Z99.11 Dependence on respirator [ventilator] status; Z91.011 Allergy to milk products; Z91.018 Allergy to other foods
CPT/HCPCS: 31500; 36415; 36558; 36600; 71045; 73718; 76000; 76775; 76942; 77001; 80048; 80053; 80061; 80202; 80307; 81001; 82010; 82040; 82306; 82570; 82728; 82805; 82962; 83036; 83540; 83550; 83605; 83735; 83880; 83930; 84100; 84156; 84300; 84443; 84478; 84484; 84550; 85007; 85018; 85025; 85027; 85610; 85730; 86850; 86900; 86901; 86920; 87040; 87070; 87075; 87077; 87081; 87086; 87088; 87205; 87340; 87426; 90935; 92610; 93005; 93926; 94002; 94003; 94640; 94644; 96361; 96365; 97110; 97116; 97163; 97530; 99152; 99291; G0378; J0690; J0696; J1100; J1450; J1642; J1815; J2185; J2250; J2543; J2704; J3480; J3490; J7060; P9047